=== PATIENT | male | born 1965 | race Caucasian/White ===

== ENCOUNTER → 2017-06-08 | Outpatient (REF) | payer MEDICARE ==
[2017-06-08 17:57] LABS: ALBUMIN 3.8 GM/DL (3.2-5.2); ALBUMIN/GLOBULIN RATIO 1.36 (1.00-1.93); ALKALINE PHOSPHATASE 79 U/L (45-117); ALT/SGPT 32 U/L (12-78); ANION GAP 10 MEQ/L (8-16); AST/SGOT 18 U/L (15-37); BILIRUBIN,TOTAL 0.3 MG/DL (0.2-1.0); BLOOD UREA NITROGEN 13 MG/DL (7-18); CALCIUM LEVEL 8.6 MG/DL (8.5-10.1); CARBON DIOXIDE LEVEL 24 MEQ/L (21-32); CHLORIDE LEVEL 104 MEQ/L (98-107); CREATININE FOR GFR 0.69 MG/DL (0.70-1.30); GLOMERULAR FILTRATION RATE > 60.0 (>56); GLUCOSE, FASTING 127 MG/DL (70-105); POTASSIUM SERUM 3.9 MEQ/L (3.5-5.1); SODIUM LEVEL 138 MEQ/L (136-145); TOTAL PROTEIN 6.6 GM/DL (6.4-8.2)
== END ==
LOC: M SFHCPLAZ 16:08
PROVIDERS: ATTEND Physician Assistant
DX: G10 Huntington's disease (principal); N40.0 Benign prostatic hyperplasia without lower urinary tract symptoms; F41.9 Anxiety disorder, unspecified; K21.9 Gastro-esophageal reflux disease without esophagitis
CPT/HCPCS: 36415; 80053; G0103; G0463

== ENCOUNTER → 2018-09-20 | Outpatient (REF) | payer MEDICARE ==
[2018-09-20 19:27] LABS: HEMATOCRIT 45.2 % (42.0-52.0); HEMOGLOBIN 15.6 g/dl (13.5-17.5); MEAN CORPUSCULAR HEMOGLOBIN 31.5 pg (27.0-33.0); MEAN CORPUSCULAR HGB CONC 34.5 g/dl (32.0-36.5); MEAN CORPUSCULAR VOLUME 91.3 fl (80.0-96.0); PLATELET COUNT, AUTOMATED 336 10^3/uL (150-450); RED BLOOD COUNT 4.95 10^6/uL (4.30-6.10); RED CELL DISTRIBUTION WIDTH 13.1 % (11.5-14.5); WHITE BLOOD COUNT 11.8 10^3/uL (4.0-10.0)
[2018-09-20 20:01] LABS: ALBUMIN 4.2 GM/DL (3.2-5.2); ALBUMIN/GLOBULIN RATIO 1.27 (1.00-1.93); ALKALINE PHOSPHATASE 102 U/L (45-117); ALT/SGPT 27 U/L (12-78); ANION GAP 7 MEQ/L (8-16); AST/SGOT 16 U/L (7-37); BILIRUBIN,TOTAL 0.3 MG/DL (0.2-1.0); BLOOD UREA NITROGEN 21 MG/DL (7-18); CALCIUM LEVEL 8.8 MG/DL (8.5-10.1); CARBON DIOXIDE LEVEL 28 MEQ/L (21-32); CHLORIDE LEVEL 104 MEQ/L (98-107); CHOLESTEROL LEVEL 226 MG/DL (<200); FREE T4 1.06 NG/DL (0.76-1.46); GLOMERULAR FILTRATION RATE > 60.0 (>56); GLUCOSE, FASTING 79 MG/DL (70-100); HDL CHOLESTEROL 42 MG/DL (>40); LDL CHOLESTEROL 157 MG/DL (<100); NON-HDL-C 184 MG/DL; POTASSIUM SERUM 3.9 MEQ/L (3.5-5.1); PSA SCREENING 1.2 NG/ML (< 4.0); SODIUM LEVEL 139 MEQ/L (136-145); TOTAL PROTEIN 7.5 GM/DL (6.4-8.2); TRIGLYCERIDES LEVEL 137 MG/DL (<150)
== END ==
LOC: M SFHCADAM 15:31
DX: G47.9 Sleep disorder, unspecified (principal); F41.9 Anxiety disorder, unspecified; E78.5 Hyperlipidemia, unspecified; K21.9 Gastro-esophageal reflux disease without esophagitis; Z12.5 Encounter for screening for malignant neoplasm of prostate
CPT/HCPCS: 84443

== ENCOUNTER 2019-05-14 05:01 | Inpatient (IN) | payer MEDICARE ==
[~2019-05-14] VITALS: Ht 175.3 cm; Wt 71.5 kg
[2019-05-14 05:33] LABS: BASO % 0.2 % (0.0-1.0); EOS # 0.1 10^3/uL (0.0-0.50); HEMATOCRIT 37.2 % (42.0-52.0); HEMOGLOBIN 13.1 g/dl (13.5-17.5); LYMPH % 16.2 % (24.0-44.0); MEAN CORPUSCULAR HEMOGLOBIN 32.2 pg (27.0-33.0); MEAN CORPUSCULAR HGB CONC 35.2 g/dl (32.0-36.5); MEAN CORPUSCULAR VOLUME 91.4 fl (80.0-96.0); MONO % 8.1 % (0.0-5.0); NEUTROPHILS # 9.2 10^3/uL (1.8-7.7); PLATELET COUNT, AUTOMATED 278 10^3/uL (150-450); RED BLOOD COUNT 4.07 10^6/uL (4.30-6.10); WHITE BLOOD COUNT 12.5 10^3/uL (4.0-10.0)
[2019-05-14] MEDS ORDERED: LORazepam 2 MG/ML VIAL (J2060) IV STA (05:35)
[2019-05-14] MEDS ORDERED: IPRATROPIUM 0.5MG/ALBUTEROL 2.5MG INH SOL UD 3ML (DUONEB)(J7620) NEB ONE (05:45)
[2019-05-14 05:56] LABS: BLOOD UREA NITROGEN 13 MG/DL (7-18); CALCIUM LEVEL 8.4 MG/DL (8.5-10.1); CARBON DIOXIDE LEVEL 20 MEQ/L (21-32); CHLORIDE LEVEL 113 MEQ/L (98-107); CK-MB VALUE MASS 1.9 NG/ML (<3.6); CPK CREATINE PHOSPHOKINASE 208 U/L (39-308); GLOMERULAR FILTRATION RATE > 60.0 (>56); GLUCOSE, FASTING 131 MG/DL (70-100); MB/CK RELATIVE INDEX 0.91 (< OR =4); POTASSIUM SERUM 3.4 MEQ/L (3.5-5.1); SODIUM LEVEL 143 MEQ/L (136-145); TROPONIN I 0.02 NG/ML (< 0.10)
[2019-05-14 07:03] LABS: NT-PRO BNP 2818 PG/ML (<125)
[2019-05-14] MEDS ORDERED: FUROSEMIDE 40 MG/4 ML VIAL (J1940) IV ONE (07:30)
--- NOTE | 2019-05-14 07:48 | REP ---
Clinical: Cough and shortness of breath. Comparison: 03/10/2015 Findings: Cardiomegaly is appreciated along with increased interstitial markings and prominent pulmonary vasculature with cephalization. Findings suggest pulmonary vascular congestion although correlation is required to exclude the possibility of multifocal pneumonia. No obvious effusion. No pneumothorax. Skeletal structures intact. Impression: Cardiomegaly. Differential diagnosis includes CHF/pulmonary vascular congestion versus multifocal pneumonia. Electronically Signed by Joaquín Willard MD 05/14/2019 07:39 A
[2019-05-14] MEDS ORDERED: ACETAMINOPHEN TAB 650MG DOSE (2X325MG) PO PRN (08:30)
[2019-05-14] MEDS ORDERED: MIRT1TAB16 PO (08:32)
[2019-05-14] MEDS ORDERED: OMEP-218 PO (08:32)
[2019-05-14] MEDS ORDERED: FLOM0.4C39 PO (08:32)
[2019-05-14] MEDS ORDERED: OLAN2.5T25 PO (08:32)
[2019-05-14] MEDS ORDERED: SERT-138 PO (08:32)
[2019-05-14] MEDS ORDERED: CETI10CH PO (08:35)
[2019-05-14] MEDS ORDERED: ALL10TAB28 PO (08:36)
[2019-05-14] MEDS ORDERED: IPRATROPIUM 0.5MG/ALBUTEROL 2.5MG INH SOL UD 3ML (DUONEB)(J7620) NEB PRN (08:45)
--- NOTE | 2019-05-14 08:47 | HPEPDOC ---
[facility] Medical History & Physical Date of Admission May 14, 2019 Date of Service: May 14, 2019 History and Physical CHIEF COMPLAINT: SOB HISTORY OF PRESENT ILLNESS: Patient's a 54-year-old male with past medical history of hunting's disease and COPD presents to ER for complaints of shortness of breath. Patient has reported ly has the same complaints for several weeks with noted anxiety but has worsened for the past several days. He states that his anxiety has been getting worse and was recently started on sertraline with his PMD to help with anxiety but not has significant relief from that. Also noted to have increasing thirst and has been drinking excessively since starting the sertraline. Also reports increasing c ough, especially when he smokes but otherwise denies any fever, chills, chest pain or any other complaints. In ER, patient was found to have elevated BNP 2,800, tachycardic 130-140s HR and reportedly hypoxic requiring oxygen support. PAST MEDICAL HISTORY: Refer to [facility] PAST SURGICAL HISTORY: None SOCIAL HISTORY: Smokes 8 cigs/day.Denies alcohol or illicit drug use. FAMILY HISTORY: Mother- Brantley's disease Father- Emphysema and Lung cancer ALLERGIES: Please see below. REVIEW OF SYSTEMS: 10 point review of system negative except as stated in HPI HOME MEDICATIONS: Please see below. PHYSICAL EXAMINATION: General: No acute distress, Alert. Constant chorea. Eyes: Normal sclera, EOMI, LEMUEL HENT: Atraumatic, neck supple, moist mucous membranes Cardiovascular: Tachycardic, normal rhythm. No murmurs appreciated. Pulmonary: Clear to auscultation b/l, no wheezing GI: Soft, nontender, nondistended Skin: Warm and dry Neuro: CN grossly intact. No focal deficits. Strengths equal b/l. Psych: oriented x 3 LABORATORY DATA: See below. IMAGING: CXR- Impression: Cardiomegaly. Differential diagnosis includes CHF/pulmonary vascular congestion versus multifocal pneumonia. MICROBIOLOGY: Please see below. ASSESSMENT AND PLAN: 1. SOB - COPD vs. undiagnosed CHF - BNP 2,800, hypoxic in ER. However, no significant wheezing nor evidence of fluid overload on physical exam, apart from CXR findings. - c/w o2 support. - c/w IV lasix, I/O monitoring. - c/w nebs treatment and IV steroids at this time. 2. 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 - c/w current home meds, holding Sertraline. DVT ppx: Lovenox and SCD Code status: DNR Vital Signs Vital Signs Date Time Temp Pulse Resp B/P (MAP) Pulse Ox O2 Delivery O2 Flow Rate FiO2 05/14/19 08:01 103 94 Nasal Cannula 2.0 05/14/19 08:00 109/69 (82) 05/14/19 07:00 20 05/14/19 05:19 98.2 Laboratory Data Labs 24H Laboratory Tests 2 05/14/19 05:24: Immature Granulocyte % (Auto) 0.5, White Blood Count 12.5H, Red Blood Count 4.07L, Hemoglobin 13.1L, Hematocrit 37.2L, Mean Corpuscular Volume 91.4, Mean Corpuscular Hemoglobin 32.2, Mean Corpuscular Hemoglobin Concent 35.2, Red Cell Distribution Width 14.3, Platelet Count 278, Neutrophils (%) (Auto) 74.0H, Lymphocytes (%) (Auto) 16.2L, Monocytes (%) (Auto) 8.1H, Eosinophils (%) (Auto) 1.0, Basophils (%) (Auto) 0.2, Neutrophils # (Auto) 9.2H, Lymphocytes # (Auto) 2.0, Monocytes # (Auto) 1.0H, Eosinophils # (Auto) 0.1, Basophils # (Auto) 0.0, Nucleated Red Blood Cells % (auto) 0.0, Anion Gap 10, Glomerular Filtration Rate > 60.0, Blood Urea Nitrogen 13, Creatinine 0.90, Sodium Level 143, Potassium Level 3.4L, Chloride Level 113H, Carbon Dioxide Level 20L, Calcium Level 8.4L, Total Creatine Kinase 208, Creatine Kinase MB 1.9, Creatine Kinase MB Relative Index 0.91, Troponin I 0.02, HU-Nsv-R-Type Natriuretic Peptide 2818H CBC/BMP Laboratory Tests 05/14/19 05:24 Red Blood Count 4.07 L, Mean Corpuscular Volume 91.4, Mean Corpuscular Hemoglobin 32.2, Mean Corpuscular Hemoglobin Concent 35.2, Red Cell Distribution Width 14.3, Neutrophils (%) (Auto) 74.0 H, Lymphocytes (%) (Auto) 16.2 L, Monocy dylan (%) (Auto) 8.1 H, Eosinophils (%) (Auto) 1.0, Basophils (%) (Auto) 0.2, Neutrophils # (Auto) 9.2 H, Lymphocytes # (Auto) 2.0, Monocytes # (Auto) 1.0 H, Eosinophils # (Auto) 0.1, Basophils # (Auto) 0.0, Calcium Level 8.4 L, Total Creatine Kinase 208 Home Medications Scheduled Cetirizine HCl (Cetirizine HCl) 10 Mg Tab.chew, 10 MG PO DAILY takes at noon Mirtazapine (Mirtazapine) 30 Mg Tab.rapdis, 30 MG PO QHS Olanzapine (Olanzapine) 2.5 Mg Tablet, 2.5 MG PO BID Omeprazole (Omeprazole) 20 Mg Capsule.dr, 20 MG PO DAILY Sertraline HCl (Sertraline HCl) 100 Mg Tablet, 100 MG PO DAILY Tamsulosin HCl (Flomax) 0.4 Mg Capsule, 0.4 CAP PO ACB once daily 1/2 hour following breakfast Allergies Coded Allergies: No Known Drug Allergies (Verified Allergy, Unknown, 05/14/19) A-FIB/CHADSVASC A-FIB History Current/History of A-Fib/PAF?: No FRANCHESKA CHEW MD May 14, 2019 08:47
[2019-05-14] MEDS: CETIRIZINE (ZyrTEC) 10 MG TAB PO SCH (11:16)
[2019-05-14] MEDS: methylPREDNISolone INJ 40 MG/1 ML VIAL (J2920) IV SCH ×2 (11:16→23:09)
[2019-05-14] MEDS: ENOXAPARIN 40 MG/0.4 ML SYRINGE (J1650) SC SCH (11:17)
[2019-05-14 13:37] VITALS: BP 130/89
[2019-05-14] MEDS: IPRATROPIUM 0.5MG/ALBUTEROL 2.5MG INH SOL UD 3ML (DUONEB)(J7620) NEB SCH ×2 (14:00→19:29)
[2019-05-14] MEDS: FUROSEMIDE 40 MG/4 ML VIAL (J1940) IV SCH (16:49)
[2019-05-14 18:00] VITALS: BP 113/55
[2019-05-14] MEDS ORDERED: METOPROLOL TART 12.5 MG PER 1/2 TAB PO ONE (21:45)
[2019-05-14 22:00] VITALS: BP 107/60
--- NOTE | 2019-05-14 22:13 | ECGEPIP ---
[facility] - ED Test Date: 2019-05-14 Pat Name: CASSANDRA EDMONDS Department: Room: [place] [address] Gender: Male [employer] Lieutenant: ALEXUS : [id number] Requested By: CARO Cabrales Order Number: [id number] Reading MD: Tra Hughes Measurements Intervals [place] Rate: 119 P: CO: 100 QRS: QRSD: 114 T: 119 QT: 332 QTc: 467 Interpretive Statements SINUS TACHYCARDIA WITH SHORT CO INTERVAL MODERATE INTRAVENTRICULAR CONDUCTION DELAY Prolonged QT interval Delayed anterior R wave progression Nonspecific T wave abnormality Wavy baseline/artifact Comparison tracing not on file Electronically Signed on 05-14-2019 22:13:20 EDT by Tra Hughes
[2019-05-14 22:15] LABS: MAGNESIUM LEVEL 1.9 MG/DL (1.8-2.4)
[2019-05-14 22:57] LABS: ALBUMIN 3.6 GM/DL (3.2-5.2); BLOOD UREA NITROGEN 18 MG/DL (7-18); CALCIUM LEVEL 8.7 MG/DL (8.5-10.1); CARBON DIOXIDE LEVEL 22 MEQ/L (21-32); CHLORIDE LEVEL 109 MEQ/L (98-107); CREATININE FOR GFR 1.01 MG/DL (0.70-1.30); GLOMERULAR FILTRATION RATE > 60.0 (>56); GLUCOSE, FASTING 120 MG/DL (70-100); PHOSPHORUS LEVEL 3.9 MG/DL (2.5-4.9); POTASSIUM SERUM 3.5 MEQ/L (3.5-5.1); SODIUM LEVEL 141 MEQ/L (136-145); TROPONIN I < 0.02 NG/ML (< 0.10)
[2019-05-14] MEDS: MIRTAZAPINE 15 MG TAB PO SCH (23:09)
[2019-05-14] MEDS: OLANZapine 2.5MG TABLET PO SCH (23:09)
[2019-05-15] MEDS: IPRATROPIUM 0.5MG/ALBUTEROL 2.5MG INH SOL UD 3ML (DUONEB)(J7620) NEB SCH ×4 (01:23→19:40)
[2019-05-15 02:00] VITALS: BP 106/63
[2019-05-15 06:00] VITALS: BP 115/66
[2019-05-15 06:03] LABS: HEMATOCRIT 37.5 % (42.0-52.0); HEMOGLOBIN 13.3 g/dl (13.5-17.5); MEAN CORPUSCULAR HEMOGLOBIN 32.5 pg (27.0-33.0); MEAN CORPUSCULAR HGB CONC 35.5 g/dl (32.0-36.5); MEAN CORPUSCULAR VOLUME 91.7 fl (80.0-96.0); PLATELET COUNT, AUTOMATED 294 10^3/uL (150-450); RED BLOOD COUNT 4.09 10^6/uL (4.30-6.10); WHITE BLOOD COUNT 15.2 10^3/uL (4.0-10.0)
[2019-05-15 06:24] LABS: BLOOD UREA NITROGEN 20 MG/DL (7-18); CALCIUM LEVEL 8.1 MG/DL (8.5-10.1); CARBON DIOXIDE LEVEL 24 MEQ/L (21-32); CHLORIDE LEVEL 108 MEQ/L (98-107); GLOMERULAR FILTRATION RATE > 60.0 (>56); GLUCOSE, FASTING 153 MG/DL (70-100); POTASSIUM SERUM 3.6 MEQ/L (3.5-5.1); SODIUM LEVEL 141 MEQ/L (136-145)
[2019-05-15] MEDS: FUROSEMIDE 40 MG/4 ML VIAL (J1940) IV SCH ×2 (09:58→17:16)
[2019-05-15] MEDS: methylPREDNISolone INJ 40 MG/1 ML VIAL (J2920) IV SCH ×2 (09:58→21:59)
[2019-05-15] MEDS: CETIRIZINE (ZyrTEC) 10 MG TAB PO SCH (09:59)
[2019-05-15] MEDS: ENOXAPARIN 40 MG/0.4 ML SYRINGE (J1650) SC SCH (09:59)
[2019-05-15] MEDS: OMEPRAZOLE 20 MG CAP PO SCH (09:59)
[2019-05-15] MEDS: TAMSULOSIN 0.4 MG CAP PO SCH (09:59)
[2019-05-15] MEDS: OLANZapine 2.5MG TABLET PO SCH ×2 (09:59→21:59)
[2019-05-15] MEDS: METOPROLOL TART 12.5 MG PER 1/2 TAB PO SCH ×2 (09:59→21:59)
[2019-05-15 10:00] VITALS: BP 129/83
--- NOTE | 2019-05-15 11:17 | IPNPDOC ---
Subjective Date Seen The patient was seen on 05/15/19. Subjective Chief Complaint/HPI Patient sitting at bedside as I entered the room. He reports to be feeling better. He states he came to ER d/t anxiety. The family member at bedside reports concerns over patient's difficulty with swallowing fluids. She states at home he uses a water bottle and has been choking when drinking Constitutional: Denies: Chills, Fever Pulmonary: Reports: Cough; Denies: Dyspnea, Pleuritic Chest Pain Cardiovascular: Denies: Chest Pain, Palpitations, Orthopnea, Edema Gastrointestinal: Denies: Nausea, Vomiting, Abdominal Pain Neurological: Reports: Other Symptoms (spastic movement ) Psych: Reports: Mood Normal Objective Physical Examination General Exam: Positive: Alert, Cooperative, No Acute Distress Eye Exam: Negative: Sclera icteric Neck Exam: Positive: Supple; Negative: JVD Chest Exam: Positive: Clear to auscultation, Normal air movement; Negative: Rales, Rhonchi, Wheezing Heart Exam: Positive: Tachycardic, Regular Rhythm Abdomen Exam: Positive: Normal bowel sounds, Soft; Negative: Tenderness, Hepatospenomegaly Extremity Exam: Negative: Cyanosis, Edema Skin Exam: Positive: Nl turgor and temperature Neuro Exam: Positive: Other (spastic movements ) Psych Exam: Positive: Mental status NL Assessment /Plan Assessment Patient seen, significant chorea but appears fairly comfortable from a respiratory standpoint. States improvement in dyspnea and anxiety. -- CDT Problems (1) Shortness of breath Status: Acute Response to Treatment: Stable Problem Text: 05/15/19: Symptoms seem to be improving. ? CHF vs COPD, ECHO pend ing. He was started on Lasix 40 mg IV BID and solumedrol. He is afebrile. No signs of congestion. Clinical exam unremarkable. Chest X-ray: Impression: Cardiomegaly. Differential diagnosis includes CHF/pulmonary vascular congestion versus multifocal pneumonia (2) Anxiety Status: Chronic Response to Treatment: Stable Problem Text: 05/15/19: Patient was on Sertaline 100mg po q day which was placed on hold. We should consider restarting this medication (3) Difficulty swallowing liquids Status: Acute Problem Text: 05/15/19: Swallow eval (4) Tachycardia Status: Chronic Response to Treatment: Stable Problem Text: 05/15/19: Patient's HR ranging 110-138. His baseline HR is 125 upon review of outpatient records. He was started on Metoprolol 12.5 mg po bid. We will continue to monitor. He remains on tele. EKG ordered. ECHO pending (5) [place]'s disease Status: Chronic Response to Treatment: Stable Plan/VTE VTE Prophylaxis Ordered?: Yes (Lovenox) VS, I&O, 24H, Fishbone Vital Signs/I&O Vital Signs Date Time Temp Pulse Resp B/P (MAP) Pulse Ox O2 Delivery O2 Flow Rate FiO2 05/15/19 10:00 97.7 127 22 129/83 (98) 95 2.0 05/14/19 13:01 Nasal Cannula I&O- Last 24 Hours up to 6 AM 05/15/19 06:00 Intake Total 1800 ml Output Total 2300 ml Balance -500 ml Laboratory Data 24H LABS Laboratory Tests 2 05/14/19 21:36: Blood Urea Nitrogen 18, Creatinine 1.01, Sodium Level 141, Potassium Level 3.5, Chloride Level 109H, Carbon Dioxide Level 22, Anion Gap 10, Glomerular Filtration Rate > 60.0, Calcium Level 8.7, Phosphorus Level 3.9, Magnesium Level 1.9, Troponin I < 0.02, Albumin 3.6, Thyroid Stimulating Hormone (TSH) 1.100 05/15/19 05:27: Blood Urea Nitrogen 20H, Creatinine 0.80, Sodium Level 141, Potassium Level 3.6, Chloride Level 108H, Carbon Dioxide Level 24, Anion Gap 9, Glomerular Filtration Rate > 60.0, Calcium Level 8.1L, Nucleated Red Blood Cells % (auto) 0.0 CBC/BMP Laboratory Tests 05/14/19 21:36 Anion Gap 10 05/15/19 05:27 Red Blood Count 4.09 L, Mean Corpuscular Volume 91.7, Mean Corpuscular H emoglobin 32.5, Mean Corpuscular Hemoglobin Concent 35.5, Red Cell Distribution Width 14.2, Calcium Level 8.1 L ALLAN PETER May 15, 2019 11:17 ROLF GAN DO May 16, 2019 00:21
[2019-05-15] MEDS: SERTRALINE 100 MG TAB PO SCH (12:40)
[2019-05-15 14:00] VITALS: BP 112/72
--- NOTE | 2019-05-15 14:27 | NUR ---
Recommend level 2 mechanically altered (NDD) solids, thin liquids w/ extreme cold, small straw sips, & chin tuck strategy. Upright & OOB for intake. Oral care 3x/day. Dysphagia tx compensatory strategy training & laryngeal strengthening exercises. Addendum: 05/15/[address] SP Amended: Links added.
[2019-05-15 18:00] VITALS: BP 103/69
--- NOTE | 2019-05-15 18:45 | ECHO ---
DATE OF PROCEDURE: 05/15/2019 AGE: 54 GENDER: Male HEIGHT: 69 inches WEIGHT: 158 pounds BODY SURFACE AREA: 1.87 m2 PATIENT LOCATION: Inpatient, [address] [place] [address], room 4202 REFERRING PHYSICIAN: Johann Peralta MD INDICATION: Edema. 2-D MEASUREMENTS: RV: 3.8 cm LV: 6.0 cm Septum: 1.0 cm Posterior wall: 1.0 cm Aortic root: 3.2 cm LA: 4.2 cm LVEF: 30% DOPPLER MEASUREMENTS: AV: 1.1 m/s LVOT: 0.57 m/s LVOT diameter: 2.5 cm MV: Superimposed early and late diastolic filling patterns PV: 0.6 m/s Pulmonary artery acceleration time: 100 ms RVSP: 56 mmHg IVC: 2.2 cm COMMENTS Sinus tachycardia with incomplete left bundle branch block. Technically, challenging study in light of the patient's body habitus but diagnostically useful information was still obtained. M-mode and two-dimensional echocardiography was performed with pulsed, continuous wave, color flow and tissue Doppler studies. Moderately dilated left ventricle with normal wall thickness and moderately severe global hypokinesis resulting in moderately severe impairment of global resting systolic function. Mildly dilated left atrium. Unable to assess diastolic function in light of the persons weight and superimposition of early and late diastolic filling patterns. Right heart chambers upper limits of normal in size with marked hypokinesis of right ventricular free wall and Doppler evidence of at least moderate pulmonary hypertension. IVC size upper limits of normal with reduced respiratory collapse in keeping with elevated central venous pressure - right heart failure. Normal-appearing aortic valve with adequate cusp separation but premature cusp closure in keeping with reduced forward stroke volume. Normal-appearing mitral valvular apparatus with reduced leaflet excursion again in keeping with reduced flow. No posterior systolic buckling or prolapse but moderate eccentrically directed mitral insufficiency. Normal appearing tricuspid valve with at least mild - moderate insufficiency. No apparent intracardiac mass or pericardial effusion. The above test findings are consistent with a dilated cardiomyopathy.
[2019-05-15] MEDS: MIRTAZAPINE 15 MG TAB PO SCH (21:59)
[2019-05-15 22:00] VITALS: BP 108/69
[2019-05-16] MEDS: IPRATROPIUM 0.5MG/ALBUTEROL 2.5MG INH SOL UD 3ML (DUONEB)(J7620) NEB SCH ×4 (01:31→20:08)
[2019-05-16 02:00] VITALS: BP 103/57
[2019-05-16 06:00] VITALS: BP 100/67
[2019-05-16 06:30] LABS: BASO % 0.1 % (0.0-1.0); HEMATOCRIT 39.5 % (42.0-52.0); HEMOGLOBIN 13.7 g/dl (13.5-17.5); LYMPH # 1.3 10^3/uL (1.5-4.5); LYMPH % 7.7 % (24.0-44.0); MEAN CORPUSCULAR HEMOGLOBIN 32.3 pg (27.0-33.0); MEAN CORPUSCULAR HGB CONC 34.7 g/dl (32.0-36.5); MEAN CORPUSCULAR VOLUME 93.2 fl (80.0-96.0); MONO # 0.8 10^3/uL (0.0-0.8); NEUTROPHILS # 14.5 10^3/uL (1.8-7.7); NEUTROPHILS % 86.7 % (36.0-66.0); PLATELET COUNT, AUTOMATED 328 10^3/uL (150-450); RED BLOOD COUNT 4.24 10^6/uL (4.30-6.10); WHITE BLOOD COUNT 16.8 10^3/uL (4.0-10.0)
[2019-05-16 06:49] LABS: BLOOD UREA NITROGEN 23 MG/DL (7-18); CALCIUM LEVEL 8.6 MG/DL (8.5-10.1); CARBON DIOXIDE LEVEL 26 MEQ/L (21-32); CHLORIDE LEVEL 107 MEQ/L (98-107); CREATININE FOR GFR 0.99 MG/DL (0.70-1.30); GLOMERULAR FILTRATION RATE > 60.0 (>56); GLUCOSE, FASTING 145 MG/DL (70-100); POTASSIUM SERUM 3.5 MEQ/L (3.5-5.1); SODIUM LEVEL 141 MEQ/L (136-145)
[2019-05-16] MEDS ORDERED: POTASSIUM CHLORIDE 10 MEQ SR TABLET PO ONE ×2 (09:15→10:00)
[2019-05-16] MEDS: TAMSULOSIN 0.4 MG CAP PO SCH (09:33)
[2019-05-16] MEDS: methylPREDNISolone INJ 40 MG/1 ML VIAL (J2920) IV SCH ×2 (09:33→22:06)
[2019-05-16] MEDS: ENOXAPARIN 40 MG/0.4 ML SYRINGE (J1650) SC SCH (09:33)
[2019-05-16] MEDS: OLANZapine 2.5MG TABLET PO SCH ×2 (09:33→22:06)
[2019-05-16] MEDS: OMEPRAZOLE 20 MG CAP PO SCH (09:33)
[2019-05-16] MEDS: CETIRIZINE (ZyrTEC) 10 MG TAB PO SCH (09:33)
[2019-05-16] MEDS: SERTRALINE 100 MG TAB PO SCH (09:33)
[2019-05-16] MEDS: METOPROLOL TART 12.5 MG PER 1/2 TAB PO SCH ×2 (09:34→22:05)
[2019-05-16 09:53] LABS: MAGNESIUM LEVEL 2.1 MG/DL (1.8-2.4)
[2019-05-16 10:00] VITALS: BP 100/66
--- NOTE | 2019-05-16 11:44 | IPNPDOC ---
Subjective Date Seen The patient was seen on 05/16/19. Subjective Chief Complaint/HPI Pt this morning without new concerns. Nursing reports VT overnight. General: Denies: Fatigue Constitutional: Denies: Fever ENT: Denies: Head Aches Pulmonary: Reports: Dyspnea (improved); Denies: Cough Cardiovascular: Denies: Chest Pain, Palpitations Gastrointestinal: Denies: Nausea, Vomiting, Diarrhea Neurological: Denies: Weakness Psych: Reports: Mood Normal Objective Physical Examination General Exam: Positive: Alert, Cooperative, No Acute Distress Neck Exam: Positive: Supple; Negative: JVD Chest Exam: Positive: Clear to auscultation, Normal air movement; Negative: Rales, Rhonchi, Wheezing Heart Exam: Positive: Tachycardic, Regular Rhythm Abdomen Exam: Positive: Normal bowel sounds, Soft; Negative: Tenderness, Hepatospenomegaly Extremity Exam: Negative: Cyanosis, Edema Skin Exam: Positive: Nl turgor and temperature Neuro Exam: Positive: Other (spastic movements ) Psych Exam: Positive: Mental status NL Assessment /Plan Problems (1) Cardiomyopathy Status: Chronic Discussed With: Patient, Family with Pt Consent Problem Specific Plan: Monitor Clinically Problem Text: possibly HD-associated CMP; but also CAD RF (yash use, hyperlipidemia 2A-last LDL 157) no recent URI/no EthOH use 05/15/19 TTE: Moderately dilated left ventricle with normal wall thickness and moderately severe global hypokinesis resulting in moderately severe impairment of global resting systolic function. Mildly dilated left atrium. Unable to assess diastolic function in light of the persons weight and superimposition of early and late diastolic filling patterns. Right heart chambers upper limits of normal in size with marked hypokinesis of right ventricular free wall and Doppler evidence of at least moderate pulmonary hypertension. IVC size upper limits of normal with reduced respiratory collapse in keeping with elevated central venous pressure - right heart failure. Normal-appearing aortic valve with adequate cusp separation but premature cusp closure in keeping with reduced forward stroke volume. Normal-appearing mitral valvular apparatus with reduced leaflet excursion again in keeping with reduced flow. No posterior systolic buckling or prolapse but moderate eccentrically directed mitral insufficiency. Normal appearing tricuspid valve with at least mild - moderate insufficiency. No apparent intracardiac mass or pericardial effusion. The above test findings are consistent with a dilated cardiomyopathy. DD: Selvin Tejada MD, [facility] 05/15/19 [id number] DT: [id number] [id number] DS: MARTY 05/15/192205 <Electronically signed by Selvin Tejada > 05/15/192205 DS2: [~ rep ct labl] (2) Recurrent ventricular tachycardia Status: Acute Problem Text: NS asx 05/16 K 3.5/Mg 2.1; therefore, + K 40 po; favor evaluation by Cardiology tc tx for LCH +/- AICD; possibly HD-associated CMP 05/14 TSH 1.1 05/14 T-I <0.03 (3) Systolic CHF Status: Chronic Problem Specific Plan: Monitor Clinically Problem Text: see above (4) Anxiety Status: Chronic Response to Treatment: Stable Problem Text: Stable on HD JASON regimen (5) Difficulty swallowing liquids Status: Acute Problem Text: 05/16 Soft, mech with thin liquids after ST eval, consistent with diet at home. 05/15/19: Swallow eval (6) [place]'s disease Status: Chronic Response to Treatment: Stable Plan/VTE VTE Prophylaxis Ordered?: Yes (Lovenox) VS, I&O, 24H, Fishbone Vital Signs/I&O Vital Signs Date Time Temp Pulse Resp B/P (MAP) Pulse Ox O2 Delivery O2 Flow Rate FiO2 05/16/19 10:00 97.0 117 19 100/66 (77) 100 05/15/19 14:00 05/14/19 13:01 Nasal Cannula l I&O- Last 24 Hours up to 6 AM 05/16/19 06:00 Intake Total 1050 ml Output Total 650 ml Balance 400 ml Laboratory Data 24H LABS Laboratory Tests 2 05/16/19 05:17: Immature Granulocyte % (Auto) 0.5, White Blood Count 16.8H, Red Blood Count 4.24L, Hemoglobin 13.7, Hematocrit 39.5L, Mean Corpuscular Volume 93.2, Mean Corpuscular Hemoglobin 32.3, Mean Corpuscular Hemoglobin Concent 34.7, Red Cell Distribution Width 14.7H, Platelet Count 328, Neutrophils (%) (Auto) 86.7H, Lymphocytes (%) (Auto) 7.7L, Monocytes (%) (Auto) 5.0, Eosinophils (%) (Auto) 0.0, Basophils (%) (Auto) 0.1, Neutrophils # (Auto) 14.5H, Lymphocytes # (Auto) 1.3L, Monocytes # (Auto) 0.8, Eosinophils # (Auto) 0.0, Basophils # (Auto) 0.0, Nucleated Red Blood Cells % (auto) 0.0, Anion Gap 8, Glomerular Filtration Rate > 60.0, Blood Urea Nitrogen 23H, Creatinine 0.99, Sodium Level 141, Potassium Level 3.5, Chloride Level 107, Carbon Dioxide Level 26, Calcium Level 8.6, Magnesium Level 2.1 CBC/BMP Laboratory Tests 05/16/19 05:17 Red Blood Count 4.24 L, Mean Corpuscular Volume 93.2, Mean Corpuscular Hemoglobin 32.3, Mean Corpuscular Hemoglobin Concent 34.7, Red Cell Distribution Width 14.7 H, Neutrophils (%) (Auto) 86.7 H, Lymphocytes (%) (Auto) 7.7 L, Monocytes (%) (Auto) 5.0, Eosinophils (%) (Auto) 0.0, Basophils (%) (Auto) 0.1, Neutrophils # (Auto) 14.5 H, Lymphocytes # (Auto) 1.3 L, Monocytes # (Auto) 0.8, Eosinophils # (Auto) 0.0, Basophils # (Auto) 0.0, Calcium Level 8.6 DEYVI MCNAMARA PA-C May 16, 2019 11:43 Vincenzo Muniz M.D. May 16, 2019 15:20
--- NOTE | 2019-05-16 13:24 | ECGEPIP ---
[facility] Test Date: 2019-05-15 Pat Name: CASSANDRA EDMONDS Department: Room: [place] [address] Gender: Male [employer] Fe[employer]: MARY : 1965 Requested By: ALLAN RENAE Order Number: [id number] Reading MD: Luke Spring Measurements Intervals [place] Rate: 111 P: 5 LA: 100 QRS: QRSD: 111 T: 179 QT: 362 QTc: 492 Interpretive Statements SINUS TACHYCARDIA WITH SHORT LA INTERVAL LEFT VENTRICULAR HYPERTROPHY AND ST-T CHANGE COMPARED TO 05/14/19 POOR R WAVE PROGRESSION IS NO LONGER PRESENT Electronically Signed on 05-16-2019 13:24:06 EDT by Luke Spring
[2019-05-16 14:00] VITALS: BP 112/76
[2019-05-16 16:07] LABS: CHOLESTEROL LEVEL 196 MG/DL (<200); CHOLESTEROL RISK RATIO 4.355 (<5); FREE T4 1.24 NG/DL (0.76-1.46); HDL CHOLESTEROL 45 MG/DL (>40); LDL CHOLESTEROL 136 MG/DL (<100); NON-HDL-C 151 MG/DL; TRIGLYCERIDES LEVEL 75 MG/DL (<150)
[2019-05-16 16:15] LABS: HEMOGLOBIN A1c 5.1 %
[2019-05-16 19:00] VITALS: BP 100/55
[2019-05-16 22:00] VITALS: BP 120/72
[2019-05-16] MEDS: MIRTAZAPINE 15 MG TAB PO SCH (22:06)
[2019-05-17 02:00] VITALS: BP 100/60
[2019-05-17] MEDS: IPRATROPIUM 0.5MG/ALBUTEROL 2.5MG INH SOL UD 3ML (DUONEB)(J7620) NEB SCH ×4 (02:22→19:21)
[2019-05-17 06:00] VITALS: BP 111/69
[2019-05-17 06:09] LABS: BASO % 0.1 % (0.0-1.0); HEMATOCRIT 40.1 % (42.0-52.0); LYMPH # 1.4 10^3/uL (1.5-4.5); LYMPH % 9.3 % (24.0-44.0); MEAN CORPUSCULAR HEMOGLOBIN 32.8 pg (27.0-33.0); MEAN CORPUSCULAR HGB CONC 34.9 g/dl (32.0-36.5); MEAN CORPUSCULAR VOLUME 93.9 fl (80.0-96.0); MONO # 0.9 10^3/uL (0.0-0.8); MONO % 6.1 % (0.0-5.0); NEUTROPHILS # 12.2 10^3/uL (1.8-7.7); NEUTROPHILS % 83.8 % (36.0-66.0); PLATELET COUNT, AUTOMATED 333 10^3/uL (150-450); RED BLOOD COUNT 4.27 10^6/uL (4.30-6.10); WHITE BLOOD COUNT 14.6 10^3/uL (4.0-10.0)
[2019-05-17 06:32] LABS: BLOOD UREA NITROGEN 21 MG/DL (7-18); CALCIUM LEVEL 8.8 MG/DL (8.5-10.1); CARBON DIOXIDE LEVEL 23 MEQ/L (21-32); CHLORIDE LEVEL 111 MEQ/L (98-107); CREATININE FOR GFR 0.85 MG/DL (0.70-1.30); GLOMERULAR FILTRATION RATE > 60.0 (>56); GLUCOSE, FASTING 129 MG/DL (70-100); MAGNESIUM LEVEL 2.1 MG/DL (1.8-2.4); POTASSIUM SERUM 4.8 MEQ/L (3.5-5.1); SODIUM LEVEL 142 MEQ/L (136-145); TROPONIN I 0.88 NG/ML (< 0.10)
[2019-05-17] MEDS: TAMSULOSIN 0.4 MG CAP PO SCH (09:43)
[2019-05-17] MEDS: SERTRALINE 100 MG TAB PO SCH (09:43)
[2019-05-17] MEDS: METOPROLOL TART 12.5 MG PER 1/2 TAB PO SCH (09:43)
[2019-05-17] MEDS: CETIRIZINE (ZyrTEC) 10 MG TAB PO SCH (09:43)
[2019-05-17] MEDS: OMEPRAZOLE 20 MG CAP PO SCH (09:43)
[2019-05-17] MEDS: methylPREDNISolone INJ 40 MG/1 ML VIAL (J2920) IV SCH ×2 (09:43→21:45)
[2019-05-17] MEDS: OLANZapine 2.5MG TABLET PO SCH ×2 (09:43→21:44)
[2019-05-17] MEDS: ENOXAPARIN 40 MG/0.4 ML SYRINGE (J1650) SC SCH (09:44)
[2019-05-17 10:00] VITALS: BP 117/80
[2019-05-17] MEDS: VALSARTAN 40MG TABLET (DIOVAN) PO SCH (12:04)
[2019-05-17] MEDS: FUROSEMIDE 20 MG TAB PO SCH ×2 (12:04→17:12)
--- NOTE | 2019-05-17 12:05 | IPNPDOC ---
Subjective Date Seen The patient was seen on 05/17/19. Subjective Chief Complaint/HPI Pt this morning without new concerns. He has met with Cardio this morning and has declined any interventional procedures, request only medical intervention Constitutional: Denies: Chills, Fever Pulmonary: Denies: Dyspnea, Cough Cardiovascular: Denies: Chest Pain, Palpitations Gastrointestinal: Denies: Nausea, Vomiting, Diarrhea Neurological: Reports: Weakness Psych: Reports: Mood Normal Objective Physical Examination General Exam: Positive: Alert, Cooperative, No Acute Distress Neck Exam: Positive: Supple; Negative: JVD Chest Exam: Positive: Clear to auscultation, Normal air movement; Negative: Rales, Rhonchi, Wheezing Heart Exam: Positive: Tachycardic, Regular Rhythm Abdomen Exam: Positive: Normal bowel sounds, Soft; Negative: Tenderness, Hepatospenomegaly Extremity Exam: Negative: Cyanosis, Edema Skin Exam: Positive: Nl turgor and temperature Neuro Exam: Positive: Other (spastic movements ) Psych Exam: Positive: Mental status NL Assessment /Plan Assessment Patient seen, agree with note below. Patient states more comfortable than upon admission, wishes to go home soon, wants only medical interventions, would not want an AICD or other. -- CDT Problems (1) Cardiomyopathy Status: Chronic Discussed With: Patient, Family with Pt Consent Problem Specific Plan: Monitor Clinically Problem Text: 05/17 Pt has met with Dr Spring, he has declined any interventional procedures. He understands the risks and feels as though this will not improve his quality of life given his HD. Saw has made adjustments to his regimen, rec monitoring overnight then d/c in AM. 05/16 possibly HD-associated CMP; but also CAD RF (yash use, hyperlipidemia 2A- last LDL 157) no recent URI/no EthOH use 05/15/19 TTE: Moderately dilated left ventricle with normal wall thickness and moderately severe global hypokinesis resulting in moderately severe impairment of global resting systolic function. Mildly dilated left atrium. Unable to assess diastolic function in light of the persons weight and superimposition of early and late diastolic filling patterns. Right heart chambers upper limits of normal in size with marked hypokinesis of right ventricular free wall and Doppler evidence of at least moderate pulmonary hypertension. IVC size upper limits of normal with reduced respiratory collapse in keeping with elevated central venous pressure - right heart failure. Normal-appearing aortic valve with adequate cusp separation but premature cusp closure in keeping with reduced forward stroke volume. Normal-appearing mitral valvular apparatus with reduced leaflet excursion again in keeping with reduced flow. No posterior systolic buckling or prolapse but moderate eccentrically directed mitral insufficiency. Normal appearing tricuspid valve with at least mild - moderate insufficiency. No apparent intracardiac mass or pericardial effusion. The above test findings are consistent with a dilated cardiomyopathy. DD: Selvin Tejada MD, [facility] 05/15/19 1731 DT: LUCIA 05/15/191836 DS: MARTY 05/15/192205 <Electronically signed by Selvin Tejada > 05/15/192205 DS2: [~ rep ct labl] (2) Recurrent ventricular tachycardia Status: Acute Problem Text: NS asx 05/16 K 3.5/Mg 2.1; therefore, + K 40 po; favor evaluation by Cardiology tc tx for LCH +/- AICD; possibly HD-associated CMP 05/14 TSH 1.1 05/14 T-I <0.03 (3) Systolic CHF Status: Chronic Problem Specific Plan: Monitor Clinically Problem Text: see above (4) Anxiety Status: Chronic Response to Treatment: Stable Problem Text: Stable on HD JASON regimen (5) Difficulty swallowing liquids Status: Acute Problem Text: 05/16 Soft, mech with thin liquids after ST eval, consistent with diet at home. 05/15/19: Swallow eval (6) [place]'s disease Status: Chronic Response to Treatment: Stable Plan/VTE VTE Prophylaxis Ordered?: Yes (Lovenox) VS, I&O, 24H, Fishbone Vital Signs/I&O Vital Signs Date Time Temp Pulse Resp B/P (MAP) Pulse Ox O2 Delivery O2 Flow Rate FiO2 05/17/19 10:00 97.3 124 18 117/80 (92) 97 05/15/19 14:00 05/14/19 13:01 Nasal Cannula I&O- Last 24 Hours up to 6 AM 05/17/19 06:00 Intake Total 1400 ml Output Total 0 ml Balance 1400 ml Laboratory Data 24H LABS Laboratory Tests 2 05/17/19 05:27: Immature Granulocyte % (Auto) 0.7, White Blood Count 14.6H, Red Blood Count 4.27L, Hemoglobin 14.0, Hematocrit 40.1L, Mean Corpuscular Volume 93.9, Mean Corpuscular Hemoglobin 32.8, Mean Corpuscular Hemoglobin Concent 34.9, Red Cell Distribution Width 14.8H, Platelet Count 333, Neutrophils (%) (Auto) 83.8H, Lymphocytes (%) (Auto) 9.3L, Monocytes (%) (Auto) 6.1H, Eosinophils (%) (Auto) 0.0, Basophils (%) (Auto) 0.1, Neutrophils # (Auto) 12.2H, Lymphocytes # (Auto) 1.4L, Monocytes # (Auto) 0.9H, Eosinophils # (Auto) 0.0, Basophils # (Auto) 0.0, Nucleated Red Blood Cells % (auto) 0.0, Anion Gap 8, Glomerular Filtration Rate > 60.0, Blood Urea Nitrogen 21H, Creatinine 0.85, Sodium Level 142, Potassium Level 4.8#, Chloride Level 111H, Carbon Dioxide Level 23, Calcium Level 8.8, Magnesium Level 2.1, Troponin I 0.88H CBC/BMP Laboratory Tests 05/17/19 05:27 Red Blood Count 4.27 L, Mean Corpuscular Volume 93.9, Mean Corpuscular Hemoglobin 32.8, Mean Corpuscular Hemoglobin Concent 34.9, Red Cell Distribution Width 14.8 H, Neutrophils (%) (Auto) 83.8 H, Lymphocytes (%) (Auto) 9.3 L, Monocytes (%) (Auto) 6.1 H, Eosinophils (%) (Auto) 0.0, Basophils (%) (Auto) 0.1, Neutrophils # (Auto) 12.2 H, Lymphocytes # (Auto) 1.4 L, Monocytes # (Auto) 0.9 H, Eosinophils # (Auto) 0.0, Basophils # (Auto) 0.0, Calcium Level 8.8 DEYVI MCNAMARA PA-C May 17, 2019 12:05 ROLF GAN DO May 18, 2019 00:23
[2019-05-17 14:00] VITALS: BP 120/70
--- NOTE | 2019-05-17 14:28 | CR ---
DATE OF CONSULTATION: 05/17/2019 I was asked by LISA Palacios to see Mr. Villalobos for runs of nonsustained ventricular tachycardia. HISTORY OF PRESENT ILLNESS: Mr. Villalobos is previously unknown to me. 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 He reports probably two or three week history of gradually increasing cough associated with shortness of breath. He felt that the episodes of shortness of breath were due to anxiety and actually was given anxiolytic medications, but eventually came to emergency room because they were worsening. On the evaluation in the ER he was found to be very tachycardic with heart rate in 130s and 140s and chest x-ray revealed cardiomegaly and pulmonary edema. His BNP also was very elevated. He received oxygen and a relatively modest dose of diuretics and his respiratory status improved but starting last night he developed multiple runs of nonsustained ventricular tachycardia and I was asked to see him. At bedside, patient appears comfortable. He has involuntary movements consistent with his diagnosis. He reports no shortness of breath, chest pain or sensation of palpitations, syncope or near syncope. He complains principally about cough and he would like to go home as soon as possible because he feels more comfortable there. PAST MEDICAL HISTORY: 1. Marga's chorea. 2. Longstanding history of smoking. PAST SURGICAL HISTORY: Negative. SOCIAL HISTORY: Patient is and his is at bedside. He is a smoker, 8 cigarettes a day. He tells me that he smokes to calm himself down. There is no history of alcohol use. He is on disability and has been since 2014. Apparently besides his who is oxygen dependent, he lives with his [id number] who is very helpful. FAMILY HISTORY: His mother from [place]'s chorea in her early 60s, father of emphysema and lung cancer. ALLERGIES: There are no allergies. OUTPATIENT MEDICATIONS: - Zyrtec 10 mg daily - mirtazapine 30 mg at night - olanzapine 2.5 mg twice a day - omeprazole 20 mg daily - sertraline 100 mg daily - Flomax 0.4 mg daily REVIEW OF SYSTEMS: He denies any recent fever, chills, nausea, vomiting or diarrhea. He does complain about mostly nonproductive cough. No chest pain, no palpitations, no syncope. No abdominal pain, no peripheral edema. PHYSICAL EXAMINATION: VITAL SIGNS: Blood pressure 118/70, heart rate from 90s to 120s, sinus rhythm, with very frequent runs of nonsustained ventricular tachycardia (VT). He is afebrile. Weight is documented as 72 kg which is essentially unchanged since admission. He is alert and oriented and appropriate. His jugular venous pressure is not high. LUNGS: Reasonably clear even though he does have occasional inspiratory crackle bilaterally. HEART: Reveals regular tachycardia. I do not appreciate murmur. No maci gallop even though the exam is challenging on account of his choreatic movement. ABDOMEN: Soft, nontender. There is no peripheral edema. Peripheral pulses are palpable. NEUROLOGICAL: The exam is consistent with his diagnosis but he freely moves all four extremities and his thought and speech are intact. LABS Basic metabolic panel: Sodium 142, potassium 4.8, BUN 21, creatinine 0.8, and glucose 119. Hemoglobin A1c 5.1, magnesium 2.1, troponin on admission was negative. Currently this morning was 0.88. Lipid panel reveals total cholesterol 196, LDL 136, triglycerides 75, and HDL 45. TSH is 1.1. CBC: WBC count 14.6, hemoglobin 14, hematocrit 40, platelet count 333,000. There are ECGs in chart that reveal sinus tachycardia, left ventricular hypertrophy with secondary repolarization abnormalities that certainly cannot be ruled out ischemic component. An echocardiogram was interpreted by Dr. Tejada and revealed dilated hypokinetic left ventricle with estimated ejection fraction (EF) around 30% with elevated central venous pressure (CVP) and at least moderate pulmonary hypertension. ASSESSMENT AND PLAN: Mr. Villalobos is a 54-year-old man who presents with most likely nonischemic cardiomyopathy even though ischemic etiology is certainly possible. He presented with respiratory failure, but now seems to be feeling better, but started having trouble with multiple runs of nonsustained ventricular tachycardia that is very fast at times. I had a long discussion with him and his at bedside regarding management, prognosis and further interventions. He firmly tells me that he is not feeling that an invasive measurements should be taken. He says that if he dies suddenly he would consider that a blessing as the life with his neurological condition has been very unpleasant. Nevertheless, he does not want to suffer and consequently agrees to have medical management for underlying cardiomyopathy in order to reduce sensation of dyspnea and cough. I will start him on loop diuretics initially in oral form because he is not grossly volume overloaded and I will change his metoprolol to long acting preparation and will give him angiotensin receptor blockers (ARBs). I am hoping that it will make him feel a little bit better, but again consistent with his wishes that have been quite unequivocal and also corroborated by his as something that has been the case for a long time, will not perform any evaluation for underlying coronary artery disease and he would not ever entertain any possibility of angiography, stenting, bypass surgery or a defibrillator. SIN
[2019-05-17 18:00] VITALS: BP 118/60
[2019-05-17] MEDS ORDERED: METOPROLOL SUCC *XL* 25MG TAB (TopROL *XL*) PO SCH (21:00)
[2019-05-17] MEDS: MIRTAZAPINE 15 MG TAB PO SCH (21:44)
[2019-05-17 22:00] VITALS: BP 111/61
[2019-05-18] MEDS: IPRATROPIUM 0.5MG/ALBUTEROL 2.5MG INH SOL UD 3ML (DUONEB)(J7620) NEB SCH ×3 (01:18→14:00)
[2019-05-18 02:00] VITALS: BP 94/64
[2019-05-18 06:00] VITALS: BP 97/65
[2019-05-18 06:34] LABS: BLOOD UREA NITROGEN 21 MG/DL (7-18); CALCIUM LEVEL 8.7 MG/DL (8.5-10.1); CARBON DIOXIDE LEVEL 26 MEQ/L (21-32); CHLORIDE LEVEL 109 MEQ/L (98-107); CREATININE FOR GFR 0.86 MG/DL (0.70-1.30); GLOMERULAR FILTRATION RATE > 60.0 (>56); GLUCOSE, FASTING 135 MG/DL (70-100); POTASSIUM SERUM 4.5 MEQ/L (3.5-5.1); SODIUM LEVEL 142 MEQ/L (136-145)
[2019-05-18 08:33] VITALS: BP 98/68
[2019-05-18] MEDS: VALSARTAN 40MG TABLET (DIOVAN) PO SCH (08:33)
[2019-05-18] MEDS: TAMSULOSIN 0.4 MG CAP PO SCH (08:34)
[2019-05-18] MEDS: SERTRALINE 100 MG TAB PO SCH (08:34)
[2019-05-18] MEDS: OMEPRAZOLE 20 MG CAP PO SCH (08:34)
[2019-05-18] MEDS: FUROSEMIDE 20 MG TAB PO SCH (08:34)
[2019-05-18] MEDS: ENOXAPARIN 40 MG/0.4 ML SYRINGE (J1650) SC SCH (08:35)
[2019-05-18] MEDS: methylPREDNISolone INJ 40 MG/1 ML VIAL (J2920) IV SCH (08:35)
[2019-05-18] MEDS: OLANZapine 2.5MG TABLET PO SCH (09:14)
[2019-05-18] MEDS: CETIRIZINE (ZyrTEC) 10 MG TAB PO SCH (09:14)
[2019-05-18 10:00] VITALS: BP 92/61
--- NOTE | 2019-05-18 12:16 | IPN ---
DATE: 05/18/2019 Mr. Villalobos is feeling much better. He did not have any of his "panic attacks". He also did not have any additional episodes of ventricular tachycardia since yesterday. He has no specific complaints today and again tells me that he would like to go home. Vital Signs: Blood pressure 92/61. Heart rate has been from 90s to 110s. He is afebrile. His weight is documented 71.5 kg. He is alert and oriented and appropriate. His jugular venous pulse (JVP) does not look high. Lungs are clear. Heart exam reveals irregular tachycardia. I do not appreciate gallop. Abdomen is soft. Extremities are free of edema. Neurologically he is intact other than the choreoathetotic movements due to his underlying neurologic condition. Laboratory-madrigal, basic metabolic panel is normal but for glucose of 135 and CBC reveals hemoglobin 14 and hematocrit 40. ASSESSMENT/PLAN: Mr. Villalobos is a 54-year-old man who has [place]'s chorea as his principal longstanding condition. He came to the hospital with weakness and what he called anxiety attacks which almost undoubtedly were due to congestive heart failure. He was found to have probably nonischemic cardiomyopathy with severely reduced left ventricular systolic function. He does not want to have any further evaluation in this regard, but would like to be comfortable in principal, so I started him on several new medications yesterday. Even though his blood pressure is rather soft, he is feeling overall better. I believe that he can be discharged home, I would likely leave him on the current medications. I do not plan to see him in followup on an outpatient basis, but please do not hesitate to contact me if further assistance is desired on both the patient's part and the attending physician's part. I spoke about this plan with Dr. Rebollar who is the covering physician for today.
[2019-05-18] MEDS ORDERED: PRED10TA2 PO (13:16)
[2019-05-18] MEDS ORDERED: DIOV40TA PO (13:16)
[2019-05-18] MEDS ORDERED: METO1TAB32 PO (13:16)
[2019-05-18] MEDS ORDERED: FURO20TA2 PO (13:16)
--- NOTE | 2019-05-18 23:02 | DS.PDOC ---
Discharge Summary General Date of Admission May 14, 2019 at 08:28 Date of Discharge May 18, 2019 Primary Care Physician: Faustino Pruett MD Attending Physician: ROLF GAN DO Specialist/Consultants Involve: Luke Spring MD Discharge Summary PROCEDURES PERFORMED DURING STAY: echocardiogram showing a dilated cardiomyopathy with moderately severe global hypokinesis ADMITTING DIAGNOSES: 1. shortness of breath DISCHARGE DIAGNOSES: 1. cardiomyopathy 2. recurrent ventricular tachycardia 3. systolic congestive heart failure 4. anxiety 5. [place]'s disease 6. dysphagia 7. emphysema COMPLICATIONS/CHIEF COMPLAINT: Acute Respiratory Failure With Hypoxia. HISTORY OF PRESENT ILLNESS: Patient's a 54-year-old male with past medical history of hunting's disease and COPD presents to ER for complaints of shortness of breath. Patient has reportedly has the same complaints for several weeks with noted anxiety but has worsened for the past several days. He states that his anxiety has been getting worse and was recently started on sertraline with his PMD to help with anxiety but not has significant relief from that. Also noted to have increasing thirst and has been drinking excessively since starting the sertraline. Also reports increasing cough, especially when he smokes but otherwise denies any fever, chills, chest pain or any other complaints. In ER, patient was found to have elevated BNP 2,800, tachycardic 130-140s HR and reportedly hypoxic requiring oxygen support. HOSPITAL COURSE: Patient was admitted to the hospital, and started on steroids. Echo showed dilated cardiomyopathy with EF of approximately 30%, and cardiology was consulted. Ultimately patient declined any interventions beyond medications. His medications were adjusted, to include diuretic, beta maci, and valsartan. Blood pressure in the morning of 05/18 was in the lower 90s systolic, but patient denied any dizziness or symptoms, and cardiology recommended continuing the valsartan. It should further be noted that the patient had several self-limited runs of V tach during his hospitalization, but was asymptomatic during these, and declined any intervention. DISCHARGE MEDICATIONS: Please see below. ALLERGIES: Please see below. PHYSICAL EXAMINATION ON DISCHARGE: VITAL SIGNS: Please see below. GENERAL: thin, chronically ill HEENT: mucous membranes moist NECK: supple CARDIOVASCULAR EXAMINATION: regular rate and rhythm RESPIRATORY EXAMINATION: clear to auscultation bilat ABDOMINAL EXAMINATION: soft, nontender, nondistended EXTREMITIES: no edema SKIN: clean, dry, intact NEUROLOGICAL EXAMINATION: constant choreiform movements PSYCHIATRIC EXAMINATION: appropriate mood and affect LABORATORY DATA: Please see below. IMAGING: Chest X ray upon admission shows Cardiomegaly. Differential diagnosis includes CHF/pulmonary vascular congestion versus multifocal pneumonia. PROGNOSIS: fair ACTIVITY: [As tolerated]. DIET: regular DISCHARGE PLAN: home DISPOSITION: 01 Home, Self-Care. DISCHARGE INSTRUCTIONS: Take all medications as prescribed. Contact the office with shortness of breath, or any problems, complaints or concerns. ITEMS TO FOLLOWUP ON ON OUTPATIENT: Call office for followup. DISCHARGE CONDITION: [Stable]. TIME SPENT ON DISCHARGE: Greater than 15 minutes. Vital Signs/I&Os Vital Signs Date Time Temp Pulse Resp B/P (MAP) Pulse Ox O2 Delivery O2 Flow Rate FiO2 05/18/19 10:00 96.9 93 18 92/61 (71) 95 05/15/19 14:00 05/14/19 13:01 Nasal Cannula I&O- Last 24 Hours up to 6 AM 05/18/19 06:00 Intake Total 760 ml Output Total 0 ml Balance 760 ml Laboratory Data Labs 24H Laboratory Tests 2 05/18/19 05:28: Anion Gap 7L, Glomerular Filtration Rate > 60.0, Blood Urea Nitrogen 21H, Creatinine 0.86, Sodium Level 142, Potassium Level 4.5, Chloride Level 109H, Carbon Dioxide Level 26, Calcium Level 8.7 CBC/BMP Laboratory Tests 05/18/19 05:28 Calcium Level 8.7 Discharge Medications Scheduled Cetirizine HCl (Cetirizine HCl) 10 Mg Tablet, 10 MG PO DAILY, (Reported) TAKES AT NOON Furosemide (Furosemide) 20 Mg Tablet, 20 MG PO BID@09,17 Metoprolol Succinate (Metoprolol Succinate) 25 Mg Tab.er.24h, 25 MG PO QHS Mirtazapine (Mirtazapine) 30 Mg Tab.rapdis, 30 MG PO QHS, (Reported) Olanzapine (Olanzapine) 2.5 Mg Tablet, 2.5 MG PO BID, (Reported) Omeprazole (Omeprazole) 20 Mg Capsule.dr, 20 MG PO DAILY, (Reported) Prednisone (Prednisone) 10 Mg Tablet, 1 TAB PO DAILY Take 4 tabs x 2 days, then 3 tabs x 2 days, then 2 tabs x 2 days, then 1 tab x 2 days Sertraline HCl (Sertraline HCl) 100 Mg Tablet, 100 MG PO DAILY, (Reported) Tamsulosin HCl (Flomax) 0.4 Mg Capsule, 0.4 CAP PO ACB, (Reported) once daily 1/2 hour following breakfast Valsartan (Diovan) 40 Mg Tablet, 40 MG PO DAILY Allergies Coded Allergies: No Known Drug Allergies (Verified Allergy, Unknown, 05/14/19) ROLF GAN DO May 18, 2019 23:02
[2019-05-20 14:10] LABS: ANTINUCLEAR ANTIBODIES DIRECT Negative (Negative); TSH RECEPTOR ASSAY <0.50 IU/L (0.00-1.75)
== END 2019-05-18 15:43 | disposition home or self-care (01) | DRG 315 ==
LOC: M ED 05:01 → M ED INP 08:28 → M MSPAV 13:36
PROVIDERS: ADMIT Student in an Organized Health Care Education/Training Program; ATTEND Family Medicine
DX: I42.9 Cardiomyopathy, unspecified (principal); G10 Huntington's disease; I50.22 Chronic systolic (congestive) heart failure; I47.2 Ventricular tachycardia; J43.9 Emphysema, unspecified; F17.210 Nicotine dependence, cigarettes, uncomplicated; R13.10 Dysphagia, unspecified; F41.9 Anxiety disorder, unspecified; Z66 Do not resuscitate; Z79.899 Other long term (current) drug therapy

== ENCOUNTER → 2019-06-05 | Outpatient (REF) | payer MEDICARE ==
[~2019-06-05] MED LIST: ALL10TAB28 PO; CETI10CH PO; DIOV40TA PO; FLOM0.4C39 PO; FURO20TA2 PO; METO1TAB32 PO; MIRT1TAB16 PO; OLAN2.5T25 PO; OMEP-218 PO; PRED10TA2 PO; SERT-138 PO; VALS1TAB49 PO
[2019-06-05 17:35] LABS: BLOOD UREA NITROGEN 12 MG/DL (7-18); CALCIUM LEVEL 8.7 MG/DL (8.5-10.1); CARBON DIOXIDE LEVEL 24 MEQ/L (21-32); CHLORIDE LEVEL 113 MEQ/L (98-107); CREATININE FOR GFR 0.66 MG/DL (0.70-1.30); GLOMERULAR FILTRATION RATE > 60.0 (>56); GLUCOSE, FASTING 90 MG/DL (70-100); MAGNESIUM LEVEL 2.2 MG/DL (1.8-2.4); SODIUM LEVEL 143 MEQ/L (136-145)
== END ==
LOC: M SFHCPLAZ 13:04
PROVIDERS: ATTEND Family Medicine
DX: I42.0 Dilated cardiomyopathy (principal)

== ENCOUNTER 2019-06-12 01:44 | Inpatient (IN) | payer MEDICARE ==
[2019-06-12] VITALS (13 sets, daily range): BP systolic 94–140; BP diastolic 58–81; O2SAT 94
[~2019-06-12] VITALS: Ht 175.3 cm; Wt 69.7 kg
[~2019-06-12 01:44] MED LIST changes: -VALS1TAB49 PO
[2019-06-12] MEDS ORDERED: IPRATROPIUM 0.5MG/ALBUTEROL 2.5MG INH SOL UD 3ML (DUONEB)(J7620) As Ordered ONE (01:52)
[2019-06-12] MEDS ORDERED: NITROGLYCERIN 2% OINT 1 GM *U/D* PKT TOP ONE (02:00)
[2019-06-12] MEDS ORDERED: IPRATROPIUM 0.5MG/ALBUTEROL 2.5MG INH SOL UD 3ML (DUONEB)(J7620) NEB ONE (02:00)
[2019-06-12] MEDS ORDERED: FUROSEMIDE 100 MG/10 ML VIAL (J1940) IV ONE (02:00)
[2019-06-12] MEDS ORDERED: dexameTHASONE 20 MG/5 ML VIAL (J1100) IV ONE (02:00)
[2019-06-12 02:08] LABS: BASO # 0.1 10^3/uL (0.0-0.2); BASO % 0.4 % (0.0-1.0); EOS # 0.3 10^3/uL (0.0-0.50); EOS % 2.1 % (0.0-3.0); HEMATOCRIT 39.7 % (42.0-52.0); HEMOGLOBIN 13.4 g/dl (13.5-17.5); LYMPH # 4.3 10^3/uL (1.5-4.5); LYMPH % 30.3 % (24.0-44.0); MEAN CORPUSCULAR HEMOGLOBIN 32.1 pg (27.0-33.0); MEAN CORPUSCULAR HGB CONC 33.8 g/dl (32.0-36.5); MEAN CORPUSCULAR VOLUME 95.2 fl (80.0-96.0); MONO # 1.3 10^3/uL (0.0-0.8); MONO % 9.3 % (0.0-5.0); NEUTROPHILS # 8.1 10^3/uL (1.8-7.7); NEUTROPHILS % 57.5 % (36.0-66.0); PLATELET COUNT, AUTOMATED 426 10^3/uL (150-450); RED BLOOD COUNT 4.17 10^6/uL (4.30-6.10); WHITE BLOOD COUNT 14.1 10^3/uL (4.0-10.0)
[2019-06-12 02:19] LABS: INR 1.08; PROTHROMBIN TIME 13.7 SECONDS (11.8-14.0)
[2019-06-12 02:20] LABS: PARTIAL THROMBOPLASTIN TIME 28.6 SECONDS (25.0-38.4)
[2019-06-12 02:36] LABS: BLOOD UREA NITROGEN 10 MG/DL (7-18); CALCIUM LEVEL 8.7 MG/DL (8.5-10.1); CARBON DIOXIDE LEVEL 23 MEQ/L (21-32); CHLORIDE LEVEL 110 MEQ/L (98-107); CK-MB VALUE MASS 1.2 NG/ML (<3.6); CPK CREATINE PHOSPHOKINASE 130 U/L (39-308); CREATININE FOR GFR 1.01 MG/DL (0.70-1.30); GLOMERULAR FILTRATION RATE > 60.0 (>56); GLUCOSE, FASTING 320 MG/DL (70-100); MB/CK RELATIVE INDEX 0.92 (< OR =4); NT-PRO BNP 3273 PG/ML (<125); POTASSIUM SERUM 3.4 MEQ/L (3.5-5.1); SODIUM LEVEL 142 MEQ/L (136-145); TROPONIN I < 0.02 NG/ML (< 0.10)
[2019-06-12] MEDS ORDERED: VALS1TAB49 PO (02:48)
[2019-06-12] MEDS ORDERED: PILL CUTTER 1 EACH XX PRN (04:15)
[2019-06-12] MEDS ORDERED: IPRATROPIUM 0.5MG/ALBUTEROL 2.5MG INH SOL UD 3ML (DUONEB)(J7620) NEB PRN (04:30)
--- NOTE | 2019-06-12 04:36 | HPEPDOC ---
General Date of Admission 06/12/19 Date of Service: Jun 12, 2019 Chief Complaint The patient is a 54-year-old male admitted with a reason for visit of SOB. Source: Patient, Family, RN/MD, Old records Exam Limitations: Clinical conditions Severity: Severe History of Present Illness 54 YEAR OLD MALE WITH MARGA'S DISEASE, DIALATED CARDIOMYOPATHY DUE TO HD, SYSTOLIC CONGESTIVE HEART FAILURE, RECURRENT EPISODES OF NSVT REFUSED CARDIOLOGY REFERRAL, CARDIAC WORK UP OR ICD PLACEMENT,COPD/EMPHYSEMA, SMOKER WAS HOSPITALIZED FROM MAY 14 TO MAY 18 FOR ACUTE RESPIRATORY FAILURE DUE TO SYSTOLIC CHF DUE TO DILATED CARDIOMYOPATHY PRESENTED TO THE HOSPITAL WITH 3 DAYS HISTORY OF INCREASING SOB. ON PRESENTATION TO THE ED HE WAS HYPOXIC IN ROOM AIR AND ABG REQUIRING NONREBREATHING MASK FOR OXYGENATION, TACHYCARDIC TO 127, DIAPHORETIC, CXR WITH GLOBULAR HEART AND PROMINENT VASCULAR MARKING. HE WAS FOUND TO HAVE ACUTE ON CHRONIC SYSTOLIC CHF AND ACUTE RESPIRATORY FAILURE. HE WAS PUT ON CPAP, GIVE LASIX 100 MG AND NITRO PATCH . ON MY INTERVIEW HE SAID THAT HIS BREATHING IS MUCH BETTER, DENIED ANY COUGH OR PHLEGM. HE DID NOT HAVE ANY CHEST PAIN. NO FEVER OR CHILLS. HIS ADVANCE DIRECTIVES WERE AGIN CONFIRMED AND HE REMAINS DNR AND DNI AND CPAP ONLY FOR MAMNGEMENT OF HIS CHF EXACERBATION AND GIVE HIM SOME RELIEF Home Medications Scheduled Cetirizine HCl (Cetirizine HCl) 10 Mg Tablet, 10 MG PO DAILY, (Reported) TAKES AT NOON Mirtazapine (Mirtazapine) 30 Mg Tab.rapdis, 30 MG PO QHS, (Reported) Olanzapine (Olanzapine) 2.5 Mg Tablet, 2.5 MG PO BID, (Reported) Omeprazole (Omeprazole) 20 Mg Capsule.dr, 20 MG PO DAILY, (Reported) Sertraline HCl (Sertraline HCl) 100 Mg Tablet, 100 MG PO DAILY, (Reported) Tamsulosin HCl (Flomax) 0.4 Mg Capsule, 0.4 MG PO DAILY, (Reported) once daily 1/2 hour following breakfast Valsartan (Valsartan) 40 Mg Tablet, 40 MG PO DAILY, (Reported) Allergies Coded Allergies: No Known Drug Allergies (Verified Allergy, Unknown, 05/14/19) Past Medical History Medical History MARGA'S DISEASE WITH HD-ASSOCIATED CARDIOMYOPATHY (DX 05/31) DILATED CARDIOMYOPATHY (PROB FROM HD), EF 30%, GLOBAL HYPOKINESIS ECHO 05/31; REFUSES ICD OR CARDIOLOGY REFERRAL 05/31 TOBACCO USE EMPHYSEMA/COPD BACK PAIN ENVIRONMENTAL ALLERGIES FATTY LIVER DNR,DNI (SEE MOLST 09/30) MILD HYPERLIPIDEMIA RECURRENT NONSUSTAINED V TACH 05/31; DECLINES ICD/HAZARDOUS MATERIAL TECHNICIAN SYSTOLIC CONGESTIVE HEART FAILURE PULMONARY HYPERTENSION WITH RIGHT HEART FAILURE BPH DYSPHAGIA Surgical History None Family History Significant Family History: Cancer (Lung father), COPD (father), Other (Sebastian's disease in Mother, sister, brother) Social History * Smoker: current smoker Alcohol: Denies Drugs: denies A-FIB/CHADSVASC A-FIB History Current/History of A-Fib/PAF?: No Review of Systems Constitutional: Reports: Weakness, Fatigue; Denies: Chills, Fever, Night Sweats Eyes: Denies: Pain, Vision change ENT: Reports: Dysphagia; Denies: Head Aches, Ear Pain Skin: Denies: Rash, Lesions, Breakdown Pulmonary: Reports: Dyspnea, Cough Cardiovascular: Reports: Palpitations, Orthopnea, Edema Gastrointestinal: Denies: Nausea, Vomiting, Abdominal Pain, Diarrhea Genitourinary: Reports: Frequency Musculoskeletal: Denies: Neck Pain, Back Pain, Joint Pain, Muscle Pain, Spasms Neurological: Reports: Incoordination, Other Symptoms (yulia) Psych: Reports: Anxiety Physical Examination General Exam: Positive: Alert, Cooperative, Moderate Distress Eye Exam: Positive: Conjunctiva & lids normal ENT Exam: Positive: Atraumatic, Mucous membr. moist/pink, Pharynx Normal Neck Exam: Positive: Supple, JVD Chest Exam: Positive: Clear to auscultation, Diminished, Other (crackles at both the bases); Negative: Rhonchi, Wheezing Heart Exam: Positive: Tachycardic, Regular Rhythm, Normal S1, Normal S2, Murmurs (systlic) Telemetry: Positive: Sinus, Tachycardia Abdomen Exam: Positive: Normal bowel sounds, Soft; Negative: Tenderness, Hepatospenomegaly Extremity Exam: Positive: Edema (trace), Normal pulses; Negative: Clubbing, Cyanosis Skin Exam: Positive: Nl turgor and temperature; Negative: Breakdown, Lesion Vital Signs Vital Signs Date Time Temp Pulse Resp B/P (MAP) Pulse Ox O2 Delivery O2 Flow Rate FiO2 06/12/19 04:00 105 20 100/61 (74) 95 NIPPV (BIPAP/CPAP) 70 7/31/19 02:54 98.6 06/12/19 02:14 15.0 Laboratory Data Labs 24H Laboratory Tests 2 06/12/19 02:00: Immature Granulocyte % (Auto) 0.4, White Blood Count 14.1H, Red Blood Count 4.17L, Hemoglobin 13.4L, Hematocrit 39.7L, Mean Corpuscular Volume 95.2, Mean Corpuscular Hemoglobin 32.1, Mean Corpuscular Hemoglobin Concent 33.8, Red Cell Distribution Width 14.8H, Platelet Count 426, Neutrophils (%) (Auto) 57.5, Lymphocytes (%) (Auto) 30.3, Monocytes (%) (Auto) 9.3H, Eosinophils (%) (Auto) 2.1, Basophils (%) (Auto) 0.4, Neutrophils # (Auto) 8.1H, Lymphocytes # (Auto) 4.3, Monocytes # (Auto) 1.3H, Eosinophils # (Auto) 0.3, Basophils # (Auto) 0.1, Nucleated Red Blood Cells % (auto) 0.0, Prothrombin Time 13.7, Prothromb Time International Ratio 1.08, Activated Partial Thromboplast Time 28.6, Anion Gap 9, Glomerular Filtration Rate > 60.0, Blood Urea Nitrogen 10, Creatinine 1.01, Sodium Level 142, Potassium Level 3.4L, Chloride Level 110H, Carbon Dioxide Level 23, Calcium Level 8.7, Total Creatine Kinase 130, Creatine Kinase MB 1.2, Creatine Kinase MB Relative Index 0.92, Troponin I < 0.02, AV-Bpc-N-Type Natriuretic Peptide 3273H 06/12/19 02:03: POC pH (Misc Panel) 7.262L, POC Base Excess (Misc Panel) -8.0L, POC Saturated Percent O2 (Misc) 90L, POC pO2 (Misc Panel) 68.0L, POC pCO2 (Misc Panel) 41.9, POC HCO3 (Misc Panel) 18.9L, POC Total CO2 (Misc Panel) 20.0L CBC/BMP Laboratory Tests 06/12/19 02:00 Red Blood Count 4.17 L, Mean Corpuscular Volume 95.2, Mean Corpuscular Hemoglobin 32.1, Mean Corpuscular Hemoglobin Concent 33.8, Red Cell Distribution Width 14.8 H, Neutrophils (%) (Auto) 57.5, Lymphocytes (%) (Auto) 30.3, Monocytes (%) (Auto) 9.3 H, Eosinophils (%) (Auto) 2.1, Basophils (%) (Auto) 0.4, Neutrophils # (Auto) 8.1 H, Lymphocytes # (Auto) 4.3, Monocytes # (Auto) 1.3 H, Eosinophils # (Auto) 0.3, Basophils # (Auto) 0.1, Calcium Level 8.7, Total Creatine Kinase 130 Assessment/Plan Acute respiratory failure due to CHF exacerbation continue with diuresis, CPAP and oxygen supplementation Acute on chronic systolic CHF exacerbation due to dilated cardiomyopathy from Marga's disease continue with diuresis. lasix IV 2 gram sodium diet fluid restriction 1.5 liters. continue valsartan with hold parameters. Sebastian's disease Anxiety continue with home meds. Olanzepine, sertraline, mirtazepine BPH flomax Gerd omeprazole COPD/emphysema duonebs prn xopenex tid Dysphagia continue home diet. with aspiration precautions. Plan / VTE VTE Prophylaxis Ordered?: Yes TOÑA SAGE MD Jun 12, 2019 04:36
--- NOTE | 2019-06-12 07:40 | REP ---
Clinical: Dyspnea. Comparison: 05/14/2019, 09/08/2015. Findings: Mediastinum and cardiac silhouette are within normal limits for portable technique. Lung razo demonstrate diffuse reticulonodular interstitial changes. No discrete focal consolidation. No obvious effusion. No pneumothorax. Skeletal structures intact. Impression: Diffuse reticulonodular interstitial changes. Pulmonary consultation and followup recommended. Electronically Signed by Joaquín Willard MD 06/12/2019 07:31 A
[2019-06-12] MEDS ORDERED: POTASSIUM CHLORIDE 10 MEQ SR TABLET PO ONE (08:00)
[2019-06-12] MEDS: LEVALBUTEROL 1.25 MG/0.5 ML CONCENTRATE NEB INH SCH ×3 (08:13→20:07)
--- NOTE | 2019-06-12 08:37 | IPNPDOC ---
Subjective Date Seen The patient was seen on 06/12/19. Subjective Chief Complaint/HPI Patient lying in bed as I entered the room. He reports to be feeling better Constitutional: Denies: Chills, Fever Pulmonary: Denies: Dyspnea, Cough, Pleuritic Chest Pain Cardiovascular: Denies: Chest Pain, Palpitations, Orthopnea, Edema Gastrointestinal: Denies: Nausea Neurological: Reports: Other Symptoms ([place]) Psych: Reports: Mood Normal Objective Physical Examination General Exam: Positive: Alert, Cooperative, Moderate Distress Eye Exam: Positive: Conjunctiva & lids normal ENT Exam: Positive: Atraumatic, Mucous membr. moist/pink, Pharynx Normal Neck Exam: Positive: Supple; Negative: JVD Chest Exam: Positive: Clear to auscultation, Diminished; Negative: Rales, Rhonchi, Wheezing Heart Exam: Positive: Tachycardic, Regular Rhythm, Normal S1, Normal S2, Murmurs (systlic) Telemetry: Positive: Sinus, Tachycardia Abdomen Exam: Positive: Normal bowel sounds, Soft; Negative: Tenderness, Hepatospenomegaly Extremity Exam: Positive: Normal pulses; Negative: Clubbing, Cyanosis, Edema Skin Exam: Positive: Nl turgor and temperature Neuro Exam: Positive: Other (Frequent muscle jerking ) Assessment /Plan Problems (1) Acute on chronic heart failure Status: Acute Response to Treatment: Stable Problem Text: 06/11/19: Currently on IV Lasix 40mg q 8 hours. Monitor output (2) Acute respiratory failure with hypoxia Status: Acute Response to Treatment: Stable Problem Text: 06/12/19: BiPAP and CPAP and nebs. Patient afebrile Chest X-ray: Diffuse reticulonodular interstitial changes. Pulmonary consultation and followup recommended (3) Cardiomyopathy Status: Chronic Problem Text: 06/12/19: Last ECHO was 05/14/19, LVEF 30% ECHO 05/14/19 Impression: Sinus tachycardia with incomplete left bundle branch block. Technically, challenging study in light of the patient's body habitus but diagnostically useful information was still obtained. M-mode and two-dimensional echocardiography was performed with pulsed, continuous wave, color flow and tissue Doppler studies. Moderately dilated left ventricle with normal wall thickness and moderately severe global hypokinesis resulting in moderately severe impairment of global resting systolic function. Mildly dilated left atrium. Unable to assess diastolic function in light of the persons weight and superimposition of early and late diastolic filling patterns. Right heart chambers upper limits of normal in size with marked hypokinesis of right ventricular free wall and Doppler evidence of at least moderate pulmonary hypertension. IVC size upper limits of normal with reduced respiratory collapse in keeping with elevated central venous pressure - right heart failure. Normal-appearing aortic valve with adequate cusp separation but premature cusp closure in keeping with reduced forward stroke volume. Normal-appearing mitral valvular apparatus with reduced leaflet excursion again in keeping with reduced flow. No posterior systolic buckling or prolapse but moderate eccentrically directed mitral insufficiency. Normal appearing tricuspid valve with at least mild - moderate insufficiency. No apparent intracardiac mass or pericardial effusion. The above test findings are consistent with a dilated cardiomyopathy. -Dr. Tejada (4) [place]'s disease Status: Chronic Problem Text: 06/12/19: Remains on home meds Plan/VTE VTE Prophylaxis Ordered?: Yes (Lovenox ) VS, I&O, 24H, Fishbone Vital Signs/I&O Vital Signs Date Time Temp Pulse Resp B/P (MAP) Pulse Ox O2 Delivery O2 Flow Rate FiO2 06/12/19 06:15 99.4 126 25 115/81 (92) 97 70 06/12/19 06:14 BIPAP/CPAP 06/12/19 02:14 15.0 I&O- Last 24 Hours up to 6 AM 06/12/19 06:00 Output Total 2000 ml Balance -2000 ml Laboratory Data 24H LABS Laboratory Tests 2 06/12/19 02:00: Immature Granulocyte % (Auto) 0.4, White Blood Count 14.1H, Red Blood Count 4.17L, Hemoglobin 13.4L, Hematocrit 39.7L, Mean Corpuscular Volume 95.2, Mean Corpuscular Hemoglobin 32.1, Mean Corpuscular Hemoglobin Concent 33.8, Red Cell Distribution Width 14.8H, Platelet Count 426, Neutrophils (%) (Auto) 57.5, Lymphocytes (%) (Auto) 30.3, Monocytes (%) (Auto) 9.3H, Eosinophils (%) (Auto) 2.1, Basophils (%) (Auto) 0.4, Neutrophils # (Auto) 8.1H, Lymphocytes # (Auto) 4.3, Monocytes # (Auto) 1.3H, Eosinophils # (Auto) 0.3, Basophils # (Auto) 0.1, Nucleated Red Blood Cells % (auto) 0.0, Prothrombin Time 13.7, Prothromb Time International Ratio 1.08, Activated Partial Thromboplast Time 28.6, Anion Gap 9, Glomerular Filtration Rate > 60.0, Lactic Acid Level 2.7*H, Blood Urea Nitrogen 10, Creatinine 1.01, Sodium Level 142, Potassium Level 3.4L, Chloride Level 110H, Carbon Dioxide Level 23, Calcium Level 8.7, Total Creatine Kinase 130, Creatine Kinase MB 1.2, Creatine Kinase MB Relative Index 0.92, Troponin I < 0.02, IB-Vfd-C-Type Natriuretic Peptide 3273H 06/12/19 02:03: POC pH (Misc Panel) 7.262L, POC Base Excess (Misc Panel) -8.0L, POC Saturated Percent O2 (Misc) 90L, POC pO2 (Misc Panel) 68.0L, POC pCO2 (Misc Panel) 41.9, POC HCO3 (Misc Panel) 18.9L, POC Total CO2 (Misc Panel) 20.0L CBC/BMP Laboratory Tests 06/12/19 02:00 Red Blood Count 4.17 L, Mean Corpuscular Volume 95.2, Mean Corpuscular Hemoglobin 32.1, Mean Corpuscular Hemoglobin Concent 33.8, Red Cell Distribution Width 14.8 H, Neutrophils (%) (Auto) 57.5, Lymphocytes (%) (Auto) 30.3, Monocytes (%) (Auto) 9.3 H, Eosinophils (%) (Auto) 2.1, Basophils (%) (Auto) 0.4, Neutrophils # (Auto) 8.1 H, Lymphocytes # (Auto) 4.3, Monocytes # (Auto) 1.3 H, Eosinophils # (Auto) 0.3, Basophils # (Auto) 0.1, Calcium Level 8.7, Total Creatine Kinase 130 Attending Note Attending Note Significant diuresis. Sats Ok on 2 L, will d/c BiPap and move to med/surg with Tele. D/C IV lasix, start po lasix and spironolactone. May benefit from beta maci eventually but don't want to initiate during acute decompensation but will start if HR is persistently elevated. ALLAN PETER Jun 12, 2019 07:56 Bebeto Hayes MD Jun 12, 2019 13:13
[2019-06-12] MEDS: VALSARTAN 40MG TABLET (DIOVAN) PO SCH (09:00)
[2019-06-12] MEDS ORDERED: VALSARTAN 80 MG TAB (DIOVAN) PO SCH (09:00)
[2019-06-12] MEDS: ENOXAPARIN 40 MG/0.4 ML SYRINGE (J1650) SC SCH (10:35)
[2019-06-12] MEDS: OMEPRAZOLE 20 MG CAP PO SCH (10:36)
[2019-06-12] MEDS: TAMSULOSIN 0.4 MG CAP PO SCH (10:36)
[2019-06-12] MEDS: SERTRALINE 100 MG TAB PO SCH (10:36)
[2019-06-12] MEDS ORDERED: FUROSEMIDE 40 MG/4 ML VIAL (J1940) IV SCH (11:00)
[2019-06-12] MEDS: OLANZapine 2.5MG TABLET PO SCH ×2 (12:47→22:17)
[2019-06-12] MEDS: SPIRONOLACTONE 25 MG TAB PO SCH (15:30)
[2019-06-12] MEDS: FUROSEMIDE 40 MG TAB PO SCH (16:46)
--- NOTE | 2019-06-12 19:35 | ECGEPIP ---
[facility] - ED Test Date: 2019-06-12 Pat Name: CASSANDRA EDMONDS Department: Room: [place] [address] Gender: Male Manager Games: lizzie : [id number] Requested By: SUDHA RAYMOND Order Number: [id number] Reading MD: Jeanne Franco Measurements Intervals [place] Rate: 135 P: 11 TX: 140 QRS: -14 QRSD: 114 T: 113 QT: 302 QTc: 453 Interpretive Statements PROBABLE SINUS TACHYCARDIA MODERATE INTRAVENTRICULAR CONDUCTION DELAY NONSPECIFIC ST & T-WAVE ABNORMALITY INCREASED RATE 05/15/19 Electronically Signed on 06-12-2019 19:35:30 EDT by Jeanne Franco
[2019-06-12] MEDS: MIRTAZAPINE 15 MG TAB PO SCH (22:17)
[2019-06-13 05:57] LABS: BASO % 0.2 % (0.0-1.0); EOS % 0.1 % (0.0-3.0); HEMATOCRIT 37.8 % (42.0-52.0); HEMOGLOBIN 13.3 g/dl (13.5-17.5); LYMPH # 2.6 10^3/uL (1.5-4.5); LYMPH % 13.3 % (24.0-44.0); MEAN CORPUSCULAR HEMOGLOBIN 31.5 pg (27.0-33.0); MEAN CORPUSCULAR HGB CONC 35.2 g/dl (32.0-36.5); MEAN CORPUSCULAR VOLUME 89.6 fl (80.0-96.0); MONO % 10.4 % (0.0-5.0); NEUTROPHILS # 14.5 10^3/uL (1.8-7.7); NEUTROPHILS % 75.3 % (36.0-66.0); PLATELET COUNT, AUTOMATED 365 10^3/uL (150-450); RED BLOOD COUNT 4.22 10^6/uL (4.30-6.10); WHITE BLOOD COUNT 19.3 10^3/uL (4.0-10.0)
[2019-06-13 06:00] VITALS: BP 116/71
[2019-06-13 06:27] LABS: BLOOD UREA NITROGEN 17 MG/DL (7-18); CALCIUM LEVEL 8.6 MG/DL (8.5-10.1); CARBON DIOXIDE LEVEL 25 MEQ/L (21-32); CHLORIDE LEVEL 106 MEQ/L (98-107); CREATININE FOR GFR 0.82 MG/DL (0.70-1.30); GLOMERULAR FILTRATION RATE > 60.0 (>56); GLUCOSE, FASTING 113 MG/DL (70-100); POTASSIUM SERUM 3.8 MEQ/L (3.5-5.1); SODIUM LEVEL 139 MEQ/L (136-145)
[2019-06-13] MEDS: LEVALBUTEROL 1.25 MG/0.5 ML CONCENTRATE NEB INH SCH ×3 (07:04→20:36)
--- NOTE | 2019-06-13 07:50 | IPNPDOC ---
Subjective Date Seen The patient was seen on 06/13/19. Subjective Chief Complaint/HPI Patient sitting on edge of bed finishing breakfast as I entered the room this morning. He reports cough with sputum production, chest congestion that clears with cough. No events over night. Denies fever, chills or sweats, no change in appetite Constitutional: Denies: Chills, Fever Pulmonary: Reports: Cough, Other Symptoms (Sputum production ); Denies: Dyspnea, Pleuritic Chest Pain Cardiovascular: Denies: Chest Pain, Palpitations, Orthopnea, Edema Gastrointestinal: Denies: Nausea, Vomiting, Abdominal Pain Psych: Reports: Mood Normal Objective Physical Examination General Exam: Positive: Alert, Cooperative, Moderate Distress Eye Exam: Positive: Conjunctiva & lids normal ENT Exam: Positive: Atraumatic, Mucous membr. moist/pink, Pharynx Normal Neck Exam: Positive: Supple; Negative: JVD Chest Exam: Positive: Clear to auscultation, Diminished (bilateral lower lobes); Negative: Rales, Rhonchi, Wheezing Heart Exam: Positive: Regular Rhythm, Normal S1, Normal S2, Murmurs (systlic) Telemetry: Positive: Sinus Abdomen Exam: Positive: Normal bowel sounds, Soft; Negative: Tenderness, Hepatospenomegaly Extremity Exam: Positive: Normal pulses; Negative: Clubbing, Cyanosis, Edema Skin Exam: Positive: Nl turgor and temperature Neuro Exam: Positive: Other (Frequent muscle jerking ) Assessment /Plan Problems (1) Acute on chronic heart failure Status: Acute Response to Treatment: Stable Problem Text: 06/13/19: Patient diuresed -0693 yesterday. Is now on Lasix 40mg po bid and Spironolactone 25 mg q am. Repeat chest x-ray this morning 06/11/19: Currently on IV Lasix 40mg q 8 hours. Monitor output (2) Cough Status: Acute Problem Text: 06/13/19: Patient reports progressive cough throughout the night with sputum production. He remains afebrile. O2 98% on RA, however, WBC is up to 19.3 with Neutrophil count 75%. Repeat chest x-ray this morning. Sputum culture and resp panel pending. (3) Cardiomyopathy Status: Chronic Problem Text: 06/12/19: Last ECHO was 05/14/19, LVEF 30% ECHO 05/14/19 Impression: Sinus tachycardia with incomplete left bundle branch block. Technically, challenging study in light of the patient's body habitus but diagnostically useful information was still obtained. M-mode and two-dimensional echocardiography was performed with pulsed, continuous wave, color flow and tissue Doppler studies. Moderately dilated left ventricle with normal wall thickness and moderately severe global hypokinesis resulting in moderately severe impairment of global resting systolic function. Mildly dilated left atrium. Unable to assess diastolic function in light of the persons weight and superimposition of early and late diastolic filling patterns. Right heart chambers upper limits of normal in size with marked hypokinesis of right ventricular free wall and Doppler evidence of at least moderate pulmonary hypertension. IVC size upper limits of normal with reduced respiratory collapse in keeping with elevated central venous pressure - right heart failure. Normal-appearing aortic valve with adequate cusp separation but premature cusp closure in keeping with reduced forward stroke volume. Normal-appearing mitral valvular apparatus with reduced leaflet excursion again in keeping with reduced flow. No posterior systolic buckling or prolapse but moderate eccentrically directed mitral insufficiency. Normal appearing tricuspid valve with at least mild - moderate insufficiency. No apparent intracardiac mass or pericardial effusion. The above test findings are consistent with a dilated cardiomyopathy. -Dr. Tejada (4) Marga's disease Status: Chronic Problem Text: 06/12/19: Remains on home meds (5) Acute respiratory failure with hypoxia Status: Resolved Problem Text: 06/13/19: Resolved. O2 98% on RA 06/12/19: BiPAP and CPAP and nebs. Patient afebrile Chest X-ray: Diffuse reticulonodular interstitial changes. Pulmonary consultation and followup recommended Plan/VTE VTE Prophylaxis Ordered?: Yes (Lovenox ) VS, [facility]O, [facility] Vital Signs/I&O Vital Signs Date Time Temp Pulse Resp B/P (MAP) Pulse Ox O2 Delivery O2 Flow Rate FiO2 06/13/19 06:00 98.2 64 15 116/71 (86) 98 06/12/19 20:08 Nasal Cannula 2.0 06/12/19 08:13 50 I&O- Last 24 Hours up to 6 AM 06/13/19 06:00 Intake Total 1450 ml Output Total 3125 ml Balance -1675 ml Laboratory Data 24H LABS Laboratory Tests 2 06/12/19 08:21: Lactic Acid Followup at 4 Hours 1.0 06/12/19 22:07: Bedside Glucose (Misc Panel) 146H 06/13/19 05:38: Immature Granulocyte % (Auto) 0.7, White Blood Count 19.3H, Red Blood Count 4.22L, Hemoglobin 13.3L, Hematocrit 37.8L, Mean Corpuscular Volume 89.6, Mean Corpuscular Hemoglobin 31.5, Mean Corpuscular Hemoglobin Concent 35.2, Red Cell Distribution Width 14.5, Platelet Count 365, Neutrophils (%) (Auto) 75.3H, Lymphocytes (%) (Auto) 13.3L, Monocytes (%) (Auto) 10.4H, Eosinophils (%) (Auto) 0.1, Basophils (%) (Auto) 0.2, Neutrophils # (Auto) 14.5H, Lymphocytes # (Auto) 2.6, Monocytes # (Auto) 2.0H, Eosinophils # (Auto) 0.0, Basophils # (Auto) 0.0, Nucleated Red Blood Cells % (auto) 0.0, Anion Gap 8, Glomerular Filtration Rate > 60.0, Blood Urea Nitrogen 17#, Creatinine 0.82, Sodium Level 139, Potassium Level 3.8, Chloride Level 106, Carbon Dioxide Level 25, Calcium Level 8.6 CBC/BMP Laboratory Tests 06/13/19 05:38 Red Blood Count 4.22 L, Mean Corpuscular Volume 89.6, Mean Corpuscular Hemoglobin 31.5, Mean Corpuscular Hemoglobin Concent 35.2, Red Cell Distribution Width 14.5, Neutrophils (%) (Auto) 75.3 H, Lymphocytes (%) (Auto) 13.3 L, [place] cytes (%) (Auto) 10.4 H, Eosinophils (%) (Auto) 0.1, Basophils (%) (Auto) 0.2, Neutrophils # (Auto) 14.5 H, Lymphocytes # (Auto) 2.6, Monocytes # (Auto) 2.0 H, Eosinophils # (Auto) 0.0, Basophils # (Auto) 0.0, Calcium Level 8.6 ALLAN PETER [facility] Jun 13, 2019 07:50
[2019-06-13] MEDS: VALSARTAN 40MG TABLET (DIOVAN) PO SCH (09:00)
--- NOTE | 2019-06-13 09:00 | REP ---
Clinical: History of CHF/shortness of breath . Comparison: 06/12/2019 . Technique: PA and lateral. Findings: The mediastinum and cardiac silhouette are normal. The lung razo demonstrate improved aeration without acute consolidation, effusion, or pneumothorax. The skeletal structures are intact and normal. Impression: 1. Improved aeration. 2. Chronic stable changes. No acute process appreciated. Electronically Signed by Joaquín Willard MD 06/13/2019 08:51 A
[2019-06-13] MEDS: SERTRALINE 100 MG TAB PO SCH (09:13)
[2019-06-13] MEDS: OMEPRAZOLE 20 MG CAP PO SCH (09:14)
[2019-06-13] MEDS: FUROSEMIDE 40 MG TAB PO SCH ×2 (09:14→17:18)
[2019-06-13] MEDS: TAMSULOSIN 0.4 MG CAP PO SCH (09:14)
[2019-06-13] MEDS: SPIRONOLACTONE 25 MG TAB PO SCH (09:14)
[2019-06-13] MEDS: OLANZapine 2.5MG TABLET PO SCH ×2 (09:14→21:50)
[2019-06-13] MEDS: ENOXAPARIN 40 MG/0.4 ML SYRINGE (J1650) SC SCH (09:15)
[2019-06-13 14:00] VITALS: BP 102/54
[2019-06-13 20:00] VITALS: BP 113/74
[2019-06-13] MEDS: MIRTAZAPINE 15 MG TAB PO SCH (21:50)
[2019-06-14 05:29] LABS: BASO # 0.1 10^3/uL (0.0-0.2); BASO % 0.4 % (0.0-1.0); EOS # 0.1 10^3/uL (0.0-0.50); EOS % 1.1 % (0.0-3.0); HEMATOCRIT 46.4 % (42.0-52.0); LYMPH # 3.5 10^3/uL (1.5-4.5); MEAN CORPUSCULAR HEMOGLOBIN 31.7 pg (27.0-33.0); MEAN CORPUSCULAR HGB CONC 33.6 g/dl (32.0-36.5); MEAN CORPUSCULAR VOLUME 94.3 fl (80.0-96.0); MONO # 1.5 10^3/uL (0.0-0.8); MONO % 12.3 % (0.0-5.0); NEUTROPHILS # 6.9 10^3/uL (1.8-7.7); NEUTROPHILS % 56.7 % (36.0-66.0); PLATELET COUNT, AUTOMATED 435 10^3/uL (150-450); RED BLOOD COUNT 4.92 10^6/uL (4.30-6.10); WHITE BLOOD COUNT 12.2 10^3/uL (4.0-10.0)
[2019-06-14 05:34] LABS: HEMOGLOBIN 15.6 g/dl (13.5-17.5)
[2019-06-14 05:59] LABS: BLOOD UREA NITROGEN 22 MG/DL (7-18); CALCIUM LEVEL 9.1 MG/DL (8.5-10.1); CARBON DIOXIDE LEVEL 29 MEQ/L (21-32); CHLORIDE LEVEL 106 MEQ/L (98-107); CREATININE FOR GFR 1.04 MG/DL (0.70-1.30); GLOMERULAR FILTRATION RATE > 60.0 (>56); GLUCOSE, FASTING 112 MG/DL (70-100); SODIUM LEVEL 141 MEQ/L (136-145)
[2019-06-14] MEDS: LEVALBUTEROL 1.25 MG/0.5 ML CONCENTRATE NEB INH SCH ×3 (07:07→19:56)
[2019-06-14] MEDS: ENOXAPARIN 40 MG/0.4 ML SYRINGE (J1650) SC SCH (08:55)
[2019-06-14] MEDS: METOPROLOL SUCC *XL* 12.5MG PER 1/2 TAB (TopROL *XL*) PO SCH ×2 (08:55→12:51)
[2019-06-14] MEDS: VALSARTAN 40MG TABLET (DIOVAN) PO SCH (08:55)
[2019-06-14] MEDS: TAMSULOSIN 0.4 MG CAP PO SCH (08:56)
[2019-06-14] MEDS: SPIRONOLACTONE 25 MG TAB PO SCH (08:56)
[2019-06-14] MEDS: SERTRALINE 100 MG TAB PO SCH (08:56)
[2019-06-14] MEDS: OMEPRAZOLE 20 MG CAP PO SCH (08:56)
[2019-06-14] MEDS: FUROSEMIDE 40 MG TAB PO SCH (08:57)
[2019-06-14 08:59] LABS: APPEARANCE, URINE CLEAR (CLEAR); BACTERIA, URINE AUTO NEGATIVE (NEGATIVE); BILIRUBIN, URINE AUTO NEGATIVE (NEGATIVE); BLOOD, URINE BLOOD NEGATIVE (NEGATIVE); COLOR, URINE YELLOW (YELLOW); GLUCOSE, URINE (UA) AUTO NEGATIVE (NEGATIVE); KETONE, URINE AUTO NEGATIVE (NEGATIVE); LEUKOCYTE ESTERASE, URINE AUTO 1+ (NEGATIVE); MUCUS, URINE SMALL (NEGATIVE); NITRITE, URINE AUTO NEGATIVE (NEGATIVE); PROTEIN, URINE AUTO NEGATIVE (NEGATIVE); RBC, URINE AUTO 9 /HPF (0-3); SQUAMOUS EPITHELIAL CELL UR AU 0 /HPF (0-6); UROBILINOGEN, URINE AUTO 0.2 mg/dL (0.0-2.0); WBC, URINE AUTO 11 /HPF (0-3)
--- NOTE | 2019-06-14 09:08 | IPNPDOC ---
Subjective Date Seen The patient was seen on 06/14/19. Subjective Chief Complaint/HPI Patient sitting comfortably in bed as I entered the room. He offers no complaints today Constitutional: Denies: Chills Pulmonary: Denies: Dyspnea, Cough Cardiovascular: Denies: Chest Pain, Palpitations, Orthopnea, Edema Gastrointestinal: Denies: Nausea, Vomiting Psych: Reports: Mood Normal Objective Physical Examination General Exam: Positive: Alert, Cooperative, Moderate Distress Eye Exam: Positive: Conjunctiva & lids normal ENT Exam: Positive: Atraumatic, Mucous membr. moist/pink, Pharynx Normal Neck Exam: Positive: Supple; Negative: JVD Chest Exam: Positive: Clear to auscultation, Diminished (bilateral lower lobes); Negative: Rales, Rhonchi, Wheezing Heart Exam: Positive: Regular Rhythm, Normal S1, Normal S2, Murmurs (systlic) Telemetry: Positive: Sinus Abdomen Exam: Positive: Normal bowel sounds, Soft; Negative: Tenderness, Hepatospenomegaly Extremity Exam: Positive: Normal pulses; Negative: Clubbing, Cyanosis, Edema Skin Exam: Positive: Nl turgor and temperature Neuro Exam: Positive: Other (Frequent muscle jerking ) Assessment /Plan Problems (1) Acute on chronic heart failure Status: Acute Response to Treatment: Stable Problem Text: 06/14/19: Patient appears well compensated today. His Lasix was reduced to 40mg po q day. Metoprolol 12.5mg was added. He remains on Spironolactone 25mg daily and Valsartan 40mg daily. We are going to wean him off his O2. Plan for d/c tomorrow 06/13/19: Patient diuresed -[id number] yesterday. Is now on Lasix 40mg po bid and Spironolactone 25 mg q am. Repeat chest x-ray this morning 06/11/19: Currently on IV Lasix 40mg q 8 hours. Monitor output (2) Cough Status: Acute Problem Text: 06/14/19: Resp panel negative. WBC down to 12.2. Sputum culture pending. Patient remains afebrile Chest X-ray: Impression: 1. Improved aeration. 2. Chronic stable changes. No acute process appreciated. 06/13/19: Patient reports progressive cough throughout the night with sputum production. He remains afebrile. O2 98% on RA, however, WBC is up to 19.3 with Neutrophil count 75%. Repeat chest x-ray this morning. Sputum culture and resp panel pending. (3) Cardiomyopathy Status: Chronic Problem Text: 06/12/19: Last ECHO was 05/14/19, LVEF 30% ECHO 05/14/19 Impression: Sinus tachycardia with incomplete left bundle branch block. Technically, challenging study in light of the patient's body habitus but diagnostically useful information was still obtained. M-mode and two-dimensional echocardiography was performed with pulsed, continuous wave, color flow and tissue Doppler studies. Moderately dilated left ventricle with normal wall thickness and moderately severe global hypokinesis resulting in moderately severe impairment of global resting systolic function. Mildly dilated left atrium. Unable to assess diastolic function in light of the persons weight and superimposition of early and late diastolic filling patterns. Right heart chambers upper limits of normal in size with marked hypokinesis of right ventricular free wall and Doppler evidence of at least moderate pulmonary hypertension. IVC size upper limits of normal with reduced respiratory collapse in keeping with elevated central venous pressure - right heart failure. Normal-appearing aortic valve with adequate cusp separation but premature cusp closure in keeping with reduced forward stroke volume. Normal-appearing mitral valvular apparatus with reduced leaflet excursion again in keeping with reduced flow. No posterior systolic buckling or prolapse but moderate eccentrically directed mitral insufficiency. Normal appearing tricuspid valve with at least mild - moderate insufficiency. No apparent intracardiac mass or pericardial effusion. The above test findings are consistent with a dilated cardiomyopathy. -Dr. Tejada (4) [place]'s disease Status: Chronic Problem Text: 06/12/19: Remains on home meds (5) Acute respiratory failure with hypoxia Status: Resolved Problem Text: 06/13/19: Resolved. O2 98% on RA 06/12/19: BiPAP and CPAP and nebs. Patient afebrile Chest X-ray: Diffuse reticulonodular interstitial changes. Pulmonary consultation and followup recommended Plan/VTE VTE Prophylaxis Ordered?: Yes (Lovenox ) VS, I&O, 24H, Fishbone Vital Signs/I&O Vital Signs Date Time Temp Pulse Resp B/P (MAP) Pulse Ox O2 Delivery O2 Flow Rate FiO2 06/14/19 08:55 108 102/70 06/14/19 06:00 97.1 20 95 06/14/19 06:00 2.0 06/12/19 20:08 Nasal Cannula 06/12/19 08:13 50 I&O- Last 24 Hours up to 6 AM 06/14/19 06:00 Intake Total 1516 ml Output Total 2450 ml Balance -934 ml Laboratory Data 24H LABS Laboratory Tests 2 06/14/19 05:17: Immature Granulocyte % (Auto) 0.5, White Blood Count 12.2H, Red Blood Count 4.92, Hemoglobin 15.6#, Hematocrit 46.4, Mean Corpuscular Volume 94.3, Mean Corpuscular Hemoglobin 31.7, Mean Corpuscular Hemoglobin Concent 33.6, Red Cell Distribution Width 14.5, Platelet Count 435, Neutrophils (%) (Auto) 56.7, Lymphocytes (%) (Auto) 29.0, Monocytes (%) (Auto) 12.3H, Eosinophils (%) (Auto) 1.1, Basophils (%) (Auto) 0.4, Neutrophils # (Auto) 6.9, Lymphocytes # (Auto) 3.5, Monocytes # (Auto) 1.5H, Eosinophils # (Auto) 0.1, Basophils # (Auto) 0.1, Nucleated Red Blood Cells % (auto) 0.0, Anion Gap 6L, Glomerular Filtration Rate > 60.0, Blood Urea Nitrogen 22H, Creatinine 1.04, Sodium Level 141, Potassium Level 4.0, Chloride Level 106, Carbon Dioxide Level 29, Calcium Level 9.1 06/14/19 08:13: Urine Appearance CLEAR, Urine Color YELLOW, Urine pH 6.0, Urine Specific [place] 1.020, Urine Protein NEGATIVE, Urine Glucose (UA) NEGATIVE, Urine Ketones NEGA TIVE, Urine Urobilinogen 0.2, Urine Bilirubin NEGATIVE, Urine Leukocyte Esterase 1+H, Urine Blood NEGATIVE, Urine Nitrite NEGATIVE, Urine WBC (Auto) 11H, Urine RBC (Auto) 9H, Urine Hyaline Casts (Auto) 0, Urine Bacteria (Auto) NEGATIVE, Urine Squamous Epithelial Cells 0, Urine Mucus (Auto) SMALL, Urine Sperm (Auto) CBC/BMP Laboratory Tests 06/14/19 05:17 Red Blood Count 4.92, Mean Corpuscular Volume 94.3, Mean Corpuscular Hemoglobin 31.7, Mean Corpuscular Hemoglobin Concent 33.6, Red Cell Distribution Width 14.5, Neutrophils (%) (Auto) 56.7, Lymphocytes (%) (Auto) 29.0, Monocytes (%) (Auto) 12.3 H, Eosinophils (%) (Auto) 1.1, Basophils (%) (Auto) 0.4, Neutrophils # (Auto) 6.9, Lymphocytes # (Auto) 3.5, Monocytes # (Auto) 1.5 H, Eosinophils # (Auto) 0.1, Basophils # (Auto) 0.1, Calcium Level 9.1 Microbiology Microbiology 06/13/19 Gram Stain - Final, Resulted 06/13/19 Sputum Culture, Resulted Pending 06/13/19 Respiratory Virus Panel (PCR) (CHARLI) - Final, Complete [facility] Jun 14, 2019 09:08
[2019-06-14] MEDS: OLANZapine 2.5MG TABLET PO SCH ×2 (11:26→21:57)
[2019-06-14 12:34] VITALS: BP 132/68
[2019-06-14 14:00] VITALS: BP 130/60
[2019-06-14] MEDS: MIRTAZAPINE 15 MG TAB PO SCH (21:57)
[2019-06-14 22:00] VITALS: BP 119/84
[2019-06-15 06:00] VITALS: BP 121/80
[2019-06-15 06:48] LABS: BASO % 0.4 % (0.0-1.0); EOS # 0.3 10^3/uL (0.0-0.50); EOS % 3.1 % (0.0-3.0); HEMATOCRIT 46.1 % (42.0-52.0); HEMOGLOBIN 15.6 g/dl (13.5-17.5); LYMPH # 2.9 10^3/uL (1.5-4.5); LYMPH % 30.3 % (24.0-44.0); MEAN CORPUSCULAR HEMOGLOBIN 31.5 pg (27.0-33.0); MEAN CORPUSCULAR HGB CONC 33.8 g/dl (32.0-36.5); MEAN CORPUSCULAR VOLUME 92.9 fl (80.0-96.0); MONO # 1.1 10^3/uL (0.0-0.8); MONO % 11.7 % (0.0-5.0); NEUTROPHILS # 5.2 10^3/uL (1.8-7.7); NEUTROPHILS % 53.9 % (36.0-66.0); PLATELET COUNT, AUTOMATED 436 10^3/uL (150-450); RED BLOOD COUNT 4.96 10^6/uL (4.30-6.10); WHITE BLOOD COUNT 9.6 10^3/uL (4.0-10.0)
[2019-06-15 07:04] LABS: BLOOD UREA NITROGEN 18 MG/DL (7-18); CALCIUM LEVEL 8.5 MG/DL (8.5-10.1); CARBON DIOXIDE LEVEL 28 MEQ/L (21-32); CHLORIDE LEVEL 106 MEQ/L (98-107); CREATININE FOR GFR 0.93 MG/DL (0.70-1.30); GLOMERULAR FILTRATION RATE > 60.0 (>56); GLUCOSE, FASTING 100 MG/DL (70-100); POTASSIUM SERUM 3.8 MEQ/L (3.5-5.1); SODIUM LEVEL 141 MEQ/L (136-145)
[2019-06-15] MEDS: LEVALBUTEROL 1.25 MG/0.5 ML CONCENTRATE NEB INH SCH (08:00)
[2019-06-15] MEDS ORDERED: METO1TAB32 PO (08:56)
[2019-06-15] MEDS ORDERED: FURO40TA2 PO (08:56)
[2019-06-15] MEDS ORDERED: ALDA25TA2 PO (08:56)
[2019-06-15] MEDS: TAMSULOSIN 0.4 MG CAP PO SCH (08:59)
[2019-06-15] MEDS: SPIRONOLACTONE 25 MG TAB PO SCH (08:59)
[2019-06-15] MEDS: VALSARTAN 40MG TABLET (DIOVAN) PO SCH (09:00)
[2019-06-15] MEDS: OMEPRAZOLE 20 MG CAP PO SCH (09:00)
[2019-06-15] MEDS: OLANZapine 2.5MG TABLET PO SCH (09:01)
[2019-06-15] MEDS: SERTRALINE 100 MG TAB PO SCH (09:01)
[2019-06-15 09:02] VITALS: BP 121/80
[2019-06-15] MEDS: ENOXAPARIN 40 MG/0.4 ML SYRINGE (J1650) SC SCH (09:02)
[2019-06-15] MEDS: METOPROLOL SUCC *XL* 12.5MG PER 1/2 TAB (TopROL *XL*) PO SCH (09:02)
[2019-06-15] MEDS: FUROSEMIDE 40 MG TAB PO SCH (09:03)
--- NOTE | 2019-06-15 12:08 | DSES ---
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 He has repeatedly in the past declined cardiology referral or workup for automatic implantable cardiac defibrillator placement. He has a history of smoking as well. He was hypoxic on room air on presentation having evidence of congestive failure manifested by diffuse interstitial infiltrates, basilar predominance noted with tachycardia and wheezing and rales at the base, and diminished airflow. He was treated with IV diuretics with improvement, persistently somewhat tachycardic. Low dose metoprolol succinate 12.5 mg was added and at this time he seems to be tolerating this agent well. Blood pressures today 121/80, pulse 89, respiratory rate is 16, unlabored, O2 sat 96% and he did demonstrate a normal oximetry on room air. Medications were modified so that his discharge medications include: - Lasix 40 mg daily - metoprolol succinate 12.5 mg daily - spironolactone 25 mg daily - valsartan 40 mg daily - mirtazapine 30 mg at bedtime - olanzapine 2.5 mg b.i.d. - Zoloft 100 mg daily - tamsulosin 0.4 mg daily - omeprazole 20 mg daily He did receive nebulized therapies in the hospital, but has not needed those in the last couple of days. DISCHARGE DIAGNOSES: Acute to decompensation of chronic systolic biventricular failure. Panther Burn's disease. Symptomatic benign prostatic hypertrophy (BPH), treated with tamsulosin. PLAN: Medications as listed. Activity as tolerated. 1500 mL fluid restriction and 2 grams sodium restriction recommended. His p.o. intake in hospital was typically between 1100 and 1800. It was 1000 yesterday. Weight on June 12 was 69.7 kg.
== END 2019-06-15 12:09 | disposition home or self-care (01) | DRG 291 ==
LOC: M ED 01:44 → M ED INP 03:51 → M ICU 06:10 → M MSPAV 15:18
PROVIDERS: ADMIT Internal Medicine Nephrology; ATTEND Family Medicine
DX: I50.33 Acute on chronic diastolic (congestive) heart failure (principal); J96.01 Acute respiratory failure with hypoxia; G10 Huntington's disease; I42.0 Dilated cardiomyopathy; I47.1 Supraventricular tachycardia; J44.9 Chronic obstructive pulmonary disease, unspecified; K76.0 Fatty (change of) liver, not elsewhere classified; E78.5 Hyperlipidemia, unspecified; I27.20 Pulmonary hypertension, unspecified; Z66 Do not resuscitate; I50.810 Right heart failure, unspecified; N40.0 Benign prostatic hyperplasia without lower urinary tract symptoms; R13.10 Dysphagia, unspecified; F17.200 Nicotine dependence, unspecified, uncomplicated; F41.9 Anxiety disorder, unspecified; F02.80 Dementia in other diseases classified elsewhere, unspecified severity, without behavioral disturbance, psychotic disturbance, mood disturbance, and anxiety; Z79.899 Other long term (current) drug therapy

== ENCOUNTER 2019-10-08 20:49 | Emergency (ER) | payer MEDICARE ==
[~2019-10-08 20:49] MED LIST changes: +ALDA25TA2 PO; -ALL10TAB28 PO; +ALL10TAB29 PO; +FURO40TA2 PO; +VALS40TA9 PO
[2019-10-08] MEDS ORDERED: clonazePAM 0.5 MG TAB PO ONE (21:45)
[2019-10-08] MEDS ORDERED: PILL CUTTER 1 EACH XX ONE (22:19)
[2019-10-08 23:08] LABS: INFLUENZA A AMPLIFICATION NEGATIVE (NEGATIVE); INFLUENZA B AMPLIFICATION NEGATIVE (NEGATIVE)
[2019-10-08] MEDS ORDERED: KLON0.5T PO (23:49)
[2019-10-08] MEDS ORDERED: TESS100C PO (23:49)
[2019-10-09] MEDS ORDERED: BENZONATATE 100 MG CAP PO ONE
[2019-10-09 00:09] VITALS: BP 100/72
== END 2019-10-09 00:16 | disposition home or self-care (01) ==
LOC: M ED 20:49
DX: R05 Cough (principal); F41.1 Generalized anxiety disorder; J44.9 Chronic obstructive pulmonary disease, unspecified; G10 Huntington's disease; Z79.899 Other long term (current) drug therapy; F17.210 Nicotine dependence, cigarettes, uncomplicated

== ENCOUNTER 2019-10-22 14:10 | Emergency (ER) | payer MEDICARE ==
[~2019-10-22] VITALS: Ht 177.8 cm; Wt 68.6 kg
[~2019-10-22 14:10] MED LIST changes: +KLON0.5T PO; +TESS100C PO
[2019-10-22] MEDS ORDERED: LORazepam 1 MG TAB PO STA (15:17)
[2019-10-22] MEDS ORDERED: ATIV1TAB7 PO (16:26)
[2019-10-22 17:15] VITALS: BP 110/60
== END 2019-10-22 17:18 | disposition home or self-care (01) ==
LOC: M ED 14:10
DX: F41.0 Panic disorder [episodic paroxysmal anxiety] (principal); G20 Parkinson's disease; G10 Huntington's disease; F17.200 Nicotine dependence, unspecified, uncomplicated; F32.9 Major depressive disorder, single episode, unspecified

== ENCOUNTER 2019-10-25 12:03 | Inpatient (IN) | payer MEDICARE ==
[~2019-10-25] VITALS: Ht 175.3 cm; Wt 75.9 kg
[~2019-10-25 12:03] MED LIST changes: +ATIV1TAB7 PO
[2019-10-25] MEDS ORDERED: ALBUTEROL SULFATE 2.5 MG/0.5 ML INH NEB SOLN INH ONE (13:30)
[2019-10-25] MEDS ORDERED: IPRATROPIUM 0.5MG/ALBUTEROL 2.5MG INH SOL UD 3ML (DUONEB)(J7620) NEB ONE (13:30)
[2019-10-25 13:44] LABS: VENOUS BASE EXCESS -7.5 (-2.0-2.0); VENOUS HCO3 15.9 MEQ/L (23.0-27.0); VENOUS O2 SATURATION 40.6 % (60.0-80.0); VENOUS PARTIAL PRESSURE CO2 26.8 mmHg (38.0-50.0); VENOUS PARTIAL PRESSURE O2 26.8 mmHg (30.0-50.0); VENOUS PH 7.391 UNITS (7.330-7.430); VENOUS STANDARD HCO3 17.3 MEQ/L; VENOUS TOTAL CO2 16.7 MEQ/L (24.0-28.0)
[2019-10-25 13:51] LABS: BASO % 0.1 % (0.0-1.0); HEMATOCRIT 38.1 % (42.0-52.0); HEMOGLOBIN 12.4 g/dl (13.5-17.5); LYMPH # 2.1 10^3/uL (1.5-5.0); LYMPH % 10.5 % (24.0-44.0); MEAN CORPUSCULAR HEMOGLOBIN 31.9 pg (27.0-33.0); MEAN CORPUSCULAR HGB CONC 32.5 g/dl (32.0-36.5); MEAN CORPUSCULAR VOLUME 97.9 fl (80.0-96.0); MONO % 12.7 % (0.0-5.0); NEUTROPHILS # 15.4 10^3/uL (1.5-8.5); NEUTROPHILS % 75.9 % (36.0-66.0); PLATELET COUNT, AUTOMATED 293 10^3/uL (150-450); RED BLOOD COUNT 3.89 10^6/uL (4.30-6.10); WHITE BLOOD COUNT 20.3 10^3/uL (4.0-10.0)
[2019-10-25 14:03] LABS: INR 1.84
[2019-10-25 14:09] LABS: MONO # 2.6 10^3/uL (0.0-0.8)
[2019-10-25 14:32] LABS: ALBUMIN 3.1 GM/DL (3.2-5.2); ALT/SGPT 1259 U/L (12-78); BILIRUBIN,DIRECT 2.1 MG/DL (0.0-0.2); BILIRUBIN,TOTAL 3.5 MG/DL (0.2-1.0); BLOOD UREA NITROGEN 51 MG/DL (7-18); CALCIUM LEVEL 8.5 MG/DL (8.5-10.1); CARBON DIOXIDE LEVEL 23 MEQ/L (21-32); CHLORIDE LEVEL 99 MEQ/L (98-107); CK-MB VALUE MASS 5.7 NG/ML (<3.6); CPK CREATINE PHOSPHOKINASE 380 U/L (39-308); GLOMERULAR FILTRATION RATE > 60.0 (>56); GLUCOSE, FASTING 117 MG/DL (70-100); LIPASE 78 U/L (73-393); NT-PRO BNP 7131 PG/ML (<125); POTASSIUM SERUM 4.7 MEQ/L (3.5-5.1); SODIUM LEVEL 133 MEQ/L (136-145); THYROXINE (T4) 7.6 UG/DL (4.5-12.0); TOTAL PROTEIN 5.5 GM/DL (6.4-8.2); TROPONIN I 0.06 NG/ML (< 0.10)
[2019-10-25 14:44] LABS: INFLUENZA A AMPLIFICATION NEGATIVE (NEGATIVE); INFLUENZA B AMPLIFICATION NEGATIVE (NEGATIVE)
[2019-10-25] MEDS ORDERED: ISOVUE-370 76% 100ML VIAL (Q9967) As Ordered ONE (14:58)
[2019-10-25] MEDS ORDERED: cefTRIAXone SOD 2 GM in D5W MINI-BAG PLUS 50 ML IV ONE (15:00)
[2019-10-25] MEDS ORDERED: AZITHROMYCIN INJ 500 MG, VIAL MATE ADAPTER 1 EACH in D5W 250 ML IV ONE (15:00)
[2019-10-25] MEDS ORDERED: IPRATROPIUM 0.5MG/ALBUTEROL 2.5MG INH SOL UD 3ML (DUONEB)(J7620) INH PRN (16:00)
[2019-10-25] MEDS ORDERED: ACETAMINOPHEN TAB 650MG DOSE (2X325MG) PO PRN (16:00)
[2019-10-25] MEDS ORDERED: MOM 30ML SUSPENSION UDC PO PRN (16:00)
[2019-10-25] MEDS ORDERED: NS 1,000 ML IV SCH (16:00)
[2019-10-25] MEDS ORDERED: MAALOX 30 ML SUSP *UDC PO PRN (16:00)
[2019-10-25] MEDS ORDERED: LORA1TAB12 PO (16:06)
[2019-10-25] MEDS ORDERED: REME30TA PO (16:06)
--- NOTE | 2019-10-25 16:18 | HPEPDOC ---
General Date of Admission Oct 25, 2019 at 15:52 Date of Service: Oct 25, 2019 Primary Care Physician: Faustino Pruett MD Attending Physician: LAKESHIA JIMÉNEZ MD Chief Complaint The patient is a 54-year-old male admitted with a reason for visit of Community Acquired Pneumonia. Source: Caregiver Exam Limitations: Other (coordination problems. 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 Recurrent nonsustained V. tach, systolic congestive heart failure, pulmonary hypertension with right heart failure, BPH, dysphagia, history of tobacco use, emphysema, COPD, environmental allergies. Fatty liver was brought in by her caregiver with chief complaints of patient's swollen feet and weakness, also nauseous. As per patient's caregiver, she brought her to ED a few days ago with anxiety disorder and was discharged home but patient progressively got worse and was brought in today for further workup. Unable to obtained history from patient secondary to cognitive and physical disabilities. History was obtained from ED physician hold patient's old medical records were reviewed. Also history was obtained from patient's caregiver.. Home Medications Scheduled Mirtazapine (Remeron) 30 Mg Tablet, 30 MG PO QHS, (Reported) Olanzapine (Olanzapine) 2.5 Mg Tablet, 2.5 MG PO BID, (Reported) Omeprazole (Omeprazole) 20 Mg Capsule.dr, 20 MG PO DAILY, (Reported) Sertraline HCl (Sertraline HCl) 100 Mg Tablet, 100 MG PO DAILY, (Reported) Tamsulosin HCl (Flomax) 0.4 Mg Capsule, 0.4 MG PO DAILY, (Reported) once daily 1/2 hour following breakfast Scheduled PRN Lorazepam (Lorazepam) 1 Mg Tablet, 1 MG PO BID PRN for ANXIETY, (Reported) Allergies Coded Allergies: No Known Drug Allergies (Verified Allergy, Unknown, 05/14/19) Past Medical History Medical History Kittson's chorea. Cardiomyopathy, ejection fraction of 30%, global hypokinesis, tobacco use, emphysema, COPD, back pain, environmental allergies. Fatty liver DNR/DNI. Mild hyperlipidemia. Recurrent nonsustained V. tach, systolic congestive heart failure, pulmonary hypertension with right heart failure, BPH, and dysphagia Surgical History None available Family History Father had lung cancer and COPD, mother had Kittson's disease Social History * Smoker: former Smoker Alcohol: Denies Drugs: denies A-FIB/CHADSVASC A-FIB History Current/History of A-Fib/PAF?: No Review of Systems Constitutional: Reports: Other (unable to obtained review of systems secondary to patient's mental status) Physical Examination General Exam: Positive: Other (awake and no distress, choreitic movements noted) Eye Exam: Positive: PERRLA, Conjunctiva & lids normal ENT Exam: Positive: Atraumatic, Mucous membr. moist/pink Neck Exam: Positive: Supple Chest Exam: Positive: Other (. Diminished breath sounds bilaterally. No added sound audible secondary to body habitus) Heart Exam: Positive: Rate Normal, Normal S1, Normal S2 Telemetry: Positive: Tachycardia Abdomen Exam: Positive: Normal bowel sounds, Soft, Other (, unable to appreciate tenderness) Extremity Exam: Positive: Swelling, Other (bipedal edema noted) Skin Exam: Positive: Nl turgor and temperature Neuro Exam: Positive: Other (. Moves all extremities) Vital Signs Vital Signs Date Time Temp Pulse Resp B/P (MAP) Pulse Ox O2 Delivery O2 Flow Rate FiO2 10/25/19 14:00 125 18 117/79 (92) 99 Room Air 10/25/19 12:32 98.2 Laboratory Data Labs 24H Laboratory Tests 2 10/25/19 13:36: Blood Gas Bicarbonate Standard 17.3, Venous Blood pH 7.391, Venous Blood Partial Pressure CO2 26.8L, Venous Blood Partial Pressure O2 26.8L, Venous Blood Total Carbon Dioxide 16.7L, Venous Blood HCO3 15.9L, Venous Blood Oxygen Saturation 40.6L, Venous Blood Base Excess -7.5L, Lactic Acid Level 3.3*H 10/25/19 13:37: Immature Granulocyte % (Auto) 0.8, Neutrophils (%) (Auto) 75.9H, Lymphocytes (%) (Auto) 10.5L, Monocytes (%) (Auto) 12.7H, Eosinophils (%) (Auto) 0.0, Basophils (%) (Auto) 0.1, Neutrophils # (Auto) 15.4H, Lymphocytes # (Auto) 2.1, Monocytes # (Auto) 2.6H, Eosinophils # (Auto) 0.0, Basophils # (Auto) 0.0, Nucleated Red Blood Cells % (auto) 0.0, Prothrombin Time 21.0H, Prothromb Time International Ratio 1.84, Anion Gap 11, Glomerular Filtration Rate > 60.0, Calcium Level 8.5, Total Bilirubin 3.5H, Direct Bilirubin 2.1H, Aspartate Amino Transf (AST/SGOT) 1055H, Alanine Aminotransferase (ALT/SGPT) 1259H, Alkaline Phosphatase 194H, Total Creatine Kinase 380H, Creatine Kinase MB 5.7H, Creatine Kinase MB Relative Index 1.50, Troponin I 0.06, XF-Icf-M-Type Natriuretic Peptide 7131H, Total Protein 5.5L, Albumin 3.1L, Albumin/Globulin Ratio 1.29, Lipase 78, Thyroid Stimulating Hormone (TSH) 2.610, Thyroxine (T4) 7.6, Influenza Type A (RT-PCR) NEGATIVE, Influenza Type B (RT-PCR) NEGATIVE CBC/BMP Laboratory Tests 10/25/19 13:37 Microbiology Microbiology 10/25/19 Blood Culture, Received Pending 10/25/19 Gram Stain - Final, Complete 10/25/19 Sputum Culture - Final, Complete 10/25/19 Blood Culture, Received Pending Problems (1) CAP (community acquired pneumonia) Status: Acute Problem Text: This is a 54 years old white male with a genetically progressive movement disorder and dementia, 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 Recurrent nonsustained V. tach, systolic congestive heart failure, pulmonary hypertension with right heart failure, BPH, dysphagia, history of tobacco use, emphysema, COPD, environmental allergies, fatty liver was brought into ER with chief complaints of generalized weakness and nausea. On further workup. Patient was found to have a right lower lobe infiltrate on chest x-ray and I was called by the ED physician , patient also has CTA chest positive for PE. Official report is still pending. Patient. WBC count is 20.3, hemoglobin is stable, lactic acid 3.3. Electrolytes are normal except BUN 15 and creatinine of 1.30. Patient's LFTs also elevated with AST is of 1055, AST 1259, ALP 194, P of 7131 Admit patient to PCU with telemetry and continuous pulse ox Saline lock Patient received 1 dose of IV Rocephin and Zithromax in ED and will continue the same DuraNeb every 6 hours and every 2 hours when necessary, Blood cultures 2 Sputum cultures Oxygen support as needed. Patient's pulse ox is 99% on room air at the present time DVT prophylaxis: Patient will be on IV heparin for PE Bedside swallow eval Regular diet Activity as tolerated Pt is DNR/DNI (2) Pulmonary embolism Status: Acute Problem Text: I was called by the ED attending. The patient's CTA of chest t consistent with pulmonary embolus. Official report is still pending Will start patient on IV heparin. After giving the bolus of 1000 units IV. Monitor PT, PTT Monitor, continuous pulse ox (3) Right-sided heart failure Status: Acute Problem Text: Patient has bilateral pedal edema. Also history of right heart failure. Again, patient most likely has a right heart failure secondary to massive PE and pneumonia and history of congestive heart failure Will hold all IV fluids Conservative medical management Will hold IV diuresis. This patient is clinically stable with good pulse ox on room air O2 supplement as needed (4) Elevated liver enzymes Status: Acute Problem Text: Most likely secondary to keep padded congestion secondary to right heart failure Will order Acute hepatitis profile Continue monitoring liver enzymes repeated has been ordered for tomorrow (5) Kittson's disease Status: Chronic Problem Text: Continue home meds. Continue home meds (6) Anxiety Status: Chronic Problem Text: Continue home meds Plan / VTE VTE Prophylaxis Ordered?: Yes LAKESHIA JIMÉNEZ MD Oct 25, 2019 16:18
[2019-10-25] MEDS ORDERED: HEPARIN SOD (PORCINE) 5000 UNITS/ML VIAL IV PRN (16:30)
[2019-10-25] MEDS ORDERED: LORazepam 1 MG TAB As Ordered ONE (17:07)
[2019-10-25] MEDS: LORazepam 1 MG TAB PO PRN (17:10)
[2019-10-25 17:16] LABS: HEMATOCRIT 37.4 % (42.0-52.0); HEMOGLOBIN 12.2 g/dl (13.5-17.5); MEAN CORPUSCULAR HEMOGLOBIN 31.4 pg (27.0-33.0); MEAN CORPUSCULAR HGB CONC 32.6 g/dl (32.0-36.5); MEAN CORPUSCULAR VOLUME 96.1 fl (80.0-96.0); PLATELET COUNT, AUTOMATED 268 10^3/uL (150-450); RED BLOOD COUNT 3.89 10^6/uL (4.30-6.10); WHITE BLOOD COUNT 20.4 10^3/uL (4.0-10.0)
--- NOTE | 2019-10-25 17:23 | REP ---
CHEST, SINGLE VIEW: Single view of the chest is performed and compared to prior study of 06/13/2019. There is cardiomegaly. There is infiltrate in the right lung base. Left lung demonstrates no infiltrate. Mediastinal silhouette is unchanged. IMPRESSION: Cardiomegaly. Right basilar infiltrate. Electronically Signed by Juan Miguel Honeycutt MD 10/28/2019 04:15 P
[2019-10-25] MEDS: guaiFENesin DM LIQ 10ML UD PO PRN (17:25)
[2019-10-25] MEDS ORDERED: LORazepam 2 MG/ML VIAL (J2060) IV STA (17:59)
--- NOTE | 2019-10-25 18:36 | REP ---
CT abdomen and pelvis with IV but without oral contrast: History: Vomiting. CT contrast dose: 100 ml of intravenous Isovue 370. CT findings: There is moderate four-chamber cardiomegaly. There is mild passive congestion of the liver. Small bilateral pleural effusions are noted. Filling defect is seen in the pulmonary arterial tree in the right lower lobe consistent with pulmonary embolus as described in the chest CT. No adrenal lesion is seen. No abnormalities noted in the gallbladder or in the pancreas. A tiny accessory splenule is present. There is a wedge-shaped focal zone of decreased perfusion and enhancement in the posterior cortex lower pole left kidney consistent with renal infarction. This is age indeterminate. 1.9 cm in diameter. Small and large intestinal bowel loops are unremarkable. There is diffuse subcutaneous edema. Scattered normal-sized iliac and inguinal lymph nodes are noted bilaterally. No definite adenopathy. There is no CT evidence of appendicitis. There is some respiratory motion artifact. No free air is seen. Urinary bladder, seminal vesicles, and prostate are unremarkable. Impression: Diffuse extra abdominal subcutaneous edema. Cardiomegaly. Some passive congestion of the liver. There is a focal zone of wedge-shaped increased renal cortical function in the lower pole parenchyma of the left kidney consistent with infarct. New from prior study of September 03, 2015. Electronically Signed by Anish Tong MD 10/25/2019 08:02 P
[2019-10-25] MEDS ORDERED: HEPARIN SOD (PORCINE) 5000 UNITS/ML VIAL IV ONE (19:00)
--- NOTE | 2019-10-25 19:11 | REP ---
CT chest with IV contrast: History: Pneumonia. Comparison chest x-ray is from earlier this date. Comparison is made with images from CT study of the abdomen September 03, 2015. CT contrast dose: 100 ml of intravenous Isovue 370. CT findings: There is diffuse subcutaneous edema in the extrathoracic soft tissues. Moderate to marked cardiomegaly is observed. There are small bilateral pleural effusions. CHF pattern. There are scattered mediastinal lymph nodes the largest of which is a precarinal node measuring 13 mm in short axis dimension. No definite adenopathy. There is no evidence of aortic aneurysm or dissection. There is however a filling defect in the segmental pulmonary arteries to the right lower lobe consistent with acute pulmonary embolism. No other pulmonary arterial thrombus is seen. There is an infiltrate in the right lower lobe of the lung as seen on the plain radiographs. This is fairly large alveolar infiltrate. No other infiltrate is seen. There is minimal diffuse interstitial edema however. Impression: 1. CHF pattern with small bilateral pleural effusions right greater than left, cardiomegaly, and mild diffuse pulmonary and extrathoracic soft tissue edema. 2. The study is positive for pulmonary embolism with thrombus producing a filling defect in the right lower lobe pulmonary arteries. 3. There is an alveolar infiltrate in the right lower lobe. Electronically Signed by Anish Tong MD 10/25/2019 08:04 P
[2019-10-25] MEDS: HEPARIN DRIP 25,000 UNITS in IV 1 EA IV SCH (19:39)
[2019-10-25] MEDS: NS 500 ML IV ONE ×2 (19:45→20:24)
[2019-10-25] MEDS: IPRATROPIUM 0.5MG/ALBUTEROL 2.5MG INH SOL UD 3ML (DUONEB)(J7620) INH SCH (20:00)
--- NOTE | 2019-10-25 20:19 | ECGEPIP ---
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
[2019-10-25 20:23] LABS: CK-MB VALUE MASS 5.5 NG/ML (<3.6); MB/CK RELATIVE INDEX 1.37 (< OR =4); TROPONIN I 0.06 NG/ML (< 0.10)
[2019-10-25 20:48] VITALS: BP 98/65; O2SAT 96
[2019-10-25 21:00] VITALS: BP 94/64; O2SAT 98
[2019-10-25] MEDS ORDERED: ENOXAPARIN 40 MG/0.4 ML SYRINGE (J1650) SC SCH (21:00)
[2019-10-25] MEDS ORDERED: MIRTAZAPINE 15 MG TAB PO SCH (21:00)
[2019-10-25] MEDS: OLANZapine 2.5MG TABLET PO SCH (21:15)
[2019-10-25] MEDS: SERTRALINE 100 MG TAB PO SCH (21:15)
[2019-10-25] MEDS: DOCUSATE SODIUM 100 MG CAP PO SCH (21:16)
[2019-10-25 22:00] VITALS: O2SAT 97
[2019-10-25 22:03] VITALS: BP 98/63
[2019-10-25 23:00] VITALS: BP 96/63; O2SAT 98
[2019-10-25 23:44] LABS: ABG BASE EXCESS -7.1 (-2.0-2.0); ABG HCO3 14.8 MEQ/L (22.0-26.0); ABG O2 SATURATION 96.6 % (95.0-99.0); ABG PARTIAL PRESSURE CO2 21.6 mmHg (35.0-45.0); ABG PARTIAL PRESSURE O2 85.7 mmHg (75.0-100.0); ABG STANDARD HCO3 18.7 MEQ/L (22.0-26.0); ABG TOTAL CO2 15.5 MEQ/L (22.0-29.0); ABG pH (ARTERIAL) 7.454 UNITS (7.350-7.450)
[2019-10-26] VITALS (21 sets, daily range): BP systolic 81–111; BP diastolic 57–80; O2SAT 92–98
[2019-10-26] MEDS: guaiFENesin DM LIQ 10ML UD PO PRN ×2 (00:23→04:56)
[2019-10-26] MEDS: IPRATROPIUM 0.5MG/ALBUTEROL 2.5MG INH SOL UD 3ML (DUONEB)(J7620) INH SCH ×3 (02:16→14:13)
[2019-10-26] MEDS ORDERED: FUROSEMIDE 20 MG/2 ML VIAL (J1940) IV ONE ×3 (02:30→15:00)
[2019-10-26 06:15] LABS: HEMATOCRIT 34.5 % (42.0-52.0); HEMOGLOBIN 11.5 g/dl (13.5-17.5); MEAN CORPUSCULAR HEMOGLOBIN 32.1 pg (27.0-33.0); MEAN CORPUSCULAR HGB CONC 33.3 g/dl (32.0-36.5); MEAN CORPUSCULAR VOLUME 96.4 fl (80.0-96.0); PLATELET COUNT, AUTOMATED 246 10^3/uL (150-450); RED BLOOD COUNT 3.58 10^6/uL (4.30-6.10); WHITE BLOOD COUNT 23.4 10^3/uL (4.0-10.0)
[2019-10-26 06:59] LABS: ALBUMIN 2.8 GM/DL (3.2-5.2); ALT/SGPT 2295 U/L (12-78); BILIRUBIN,TOTAL 3.1 MG/DL (0.2-1.0); BLOOD UREA NITROGEN 52 MG/DL (7-18); CALCIUM LEVEL 7.6 MG/DL (8.5-10.1); CARBON DIOXIDE LEVEL 21 MEQ/L (21-32); CHLORIDE LEVEL 100 MEQ/L (98-107); CREATININE FOR GFR 1.29 MG/DL (0.70-1.30); GLOMERULAR FILTRATION RATE > 60.0 (>56); GLUCOSE, FASTING 132 MG/DL (70-100); MAGNESIUM LEVEL 2.2 MG/DL (1.8-2.4); POTASSIUM SERUM 4.5 MEQ/L (3.5-5.1); SODIUM LEVEL 135 MEQ/L (136-145); TOTAL PROTEIN 5.1 GM/DL (6.4-8.2)
[2019-10-26] MEDS ORDERED: TAMSULOSIN 0.4 MG CAP PO SCH (09:00)
[2019-10-26] MEDS ORDERED: methylPREDNISolone INJ 40 MG/1 ML VIAL (J2920) IV SCH (09:00)
[2019-10-26] MEDS ORDERED: OMEPRAZOLE 20 MG CAP PO SCH (09:00)
[2019-10-26] MEDS ORDERED: guaiFENesin ER 600 MG TAB PO SCH (09:00)
[2019-10-26] MEDS: DOCUSATE SODIUM 100 MG CAP PO SCH (09:12)
[2019-10-26] MEDS: OLANZapine 2.5MG TABLET PO SCH (09:12)
[2019-10-26] MEDS: SERTRALINE 100 MG TAB PO SCH (09:13)
--- NOTE | 2019-10-26 09:47 | REP ---
Portable chest x-ray: Single view. 10:42 p.m. film. History: Dyspnea. Comparison study: October 25, 2019. 01:45 p.m. film. Findings: Monitoring electrodes overlie the chest. There is an infiltrate in the right lower lobe consistent with pneumonia. Moderate cardiomegaly is observed. Pulmonary vasculature is not increased. Impression: Right lower lobe infiltrate. Moderate cardiomegaly. Electronically Signed by Anish Tong MD 10/26/2019 09:39 A
--- NOTE | 2019-10-26 10:40 | IPNPDOC ---
Subjective Date Seen The patient was seen on 10/26/19. Subjective Chief Complaint/HPI Mr. Villalobos indicates that he thinks his legs are less swollen today. He is uncomfortable from coughing. Nursing reports that his heparin drip has not been difficult to manage and that he is maintaining his saturations well on 1L via NC. He has eaten about 25% of his breakfast, but didn't have any nausea or difficulty with swallowing. General: Reports: Normal Appetite Constitutional: Denies: Chills, Fever Pulmonary: Reports: Dyspnea (with exertion), Cough Cardiovascular: Reports: Edema (bilateral LE); Denies: Chest Pain, Palpitations Gastrointestinal: Denies: Nausea, Vomiting, Abdominal Pain Objective Physical Examination General Exam: Positive: Alert, Cooperative, No Acute Distress, Other (persistent choreitic movements noted) Eye Exam: Positive: Conjunctiva & lids normal; Negative: Sclera icteric ENT Exam: Positive: Atraumatic, Mucous membr. moist/pink Neck Exam: Positive: Supple Chest Exam: Positive: Rales (there were course crackles noted in the R lower lung razo), Diminished, Other (egophany was noted on the R lateral chest during vocalization during my exam); Negative: Wheezing Heart Exam: Positive: Rate Normal, Irregular Rhythm, Normal S1, Normal S2 Telemetry: Positive: Atrial fibrillation, Tachycardia Abdomen Exam: Positive: Normal bowel sounds, Soft; Negative: Tenderness, Hepatospenomegaly Male Exam: Positive: Normal Genital Exam (with Hussein catheter in place) Extremity Exam: Positive: Edema (2-3mm of pitting edema noted on the lower tibial area bilaterally) Skin Exam: Positive: Nl turgor and temperature Neuro Exam: Positive: Other (consistent choreoathetoid movements) Psych Exam: Positive: Mood NL, Oriented x 3 Assessment /Plan Problems (1) CAP (community acquired pneumonia) Status: Acute Discussed With: Nurse, Patient Problem Specific Plan: Monitor Clinically, Repeat Labs Problem Text: His WBC went up a little today, but he is requiring less oxygen. I believe that we have the right antibiotics chosen. I will check a CRP and follow this. I will also add moderate dose IV steroids to see if we can get a little improvement in his oxygenation and possibly clearance of the infected material from the R lower lung field. (2) Acute respiratory failure with hypoxia Status: Acute Discussed With: Nurse, Patient Problem Specific Plan: Monitor Clinically, Repeat Labs Problem Text: He is on 1L via nasal canula and is maintaining in the low 90s right now. He has a persistent lactate level, so his body is still under hypoxem ic stress. Will monitor this. (3) Pulmonary embolism Status: Acute Problem Specific Plan: Monitor Clinically, Repeat Labs Problem Text: He is on a heparin drip for now. He will eventually need to be transitioned to an oral anticoagulant, but I'd like to make sure that we are really making progress with the infection before I change much. (4) Acute on chronic right-sided congestive heart failure Status: Acute Problem Specific Plan: Monitor Clinically Problem Text: His PE is making his preexisting heart failure worse. The Echo is still pending, but based on the liver enzymes, I don't think that his R heart function is very good right now. He is diuresing and his I/O are negative. (5) Elevated liver enzymes Status: Acute Problem Specific Plan: Repeat Labs Problem Text: Probably related to worsening passive congestion from the R sided heart failure. I anticipate that this will improve when the heart failure improves. (6) Avenue's disease Status: Chronic Problem Text: Continue current regimen. This certainly does complicate his medical management. (7) Anxiety Status: Chronic Problem Text: Continue current regimen. Plan/VTE VTE Prophylaxis Ordered?: Yes (heparin drip and SCDs) VS, I&O, 24H, Fishbone Vital Signs/I&O Vital Signs Date Time Temp Pulse Resp B/P (MAP) Pulse Ox O2 Delivery O2 Flow Rate FiO2 10/26/19 08:00 98.5 122 24 98/73 (81) 93 Nasal Cannula 1.0 I&O- Last 24 Hours up to 6 AM 10/26/19 06:00 Intake Total 1249 ml Output Total 550 ml Balance 699 ml Laboratory Data 24H LABS Laboratory Tests 2 10/25/19 13:36: Blood Gas Bicarbonate Standard 17.3, Venous Blood pH 7.391, Venous Blood Partial Pressure CO2 26.8L, Venous Blood Partial Pressure O2 26.8L, Venous Blood Total Carbon Dioxide 16.7L, Venous Blood HCO3 15.9L, Venous Blood Oxygen Saturation 40.6L, Venous Blood Base Excess -7.5L, Lactic Acid Level 3.3*H 10/25/19 13:37: Immature Granulocyte % (Auto) 0.8, Neutrophils (%) (Auto) 75.9H, Lymphocytes (%) (Auto) 10.5L, Monocytes (%) (Auto) 12.7H, Eosinophils (%) (Auto) 0.0, Basophils (%) (Auto) 0.1, Neutrophils # (Auto) 15.4H, Lymphocytes # (Auto) 2.1, Monocytes # (Auto) 2.6H, Eosinophils # (Auto) 0.0, Basophils # (Auto) 0.0, Nucleated Red Blood Cells % (auto) 0.0, Prothrombin Time 21.0H, Prothromb Time International Ratio 1.84, Anion Gap 11, Glomerular Filtration Rate > 60.0, Calcium Level 8.5, Total Bilirubin 3.5H, Direct Bilirubin 2.1H, Aspartate Amino Transf (AST/SGOT) 1055H, Alanine Aminotransferase (ALT/SGPT) 1259H, Alkaline Phosphatase 194H, Total Creatine Kinase 380H, Creatine Kinase MB 5.7H, Creatine Kinase MB Relative Index 1.50, Troponin I 0.06, [id number]-Type Natriuretic Peptide 7131H, Total Protein 5.5L, Albumin 3.1L, Albumin/Globulin Ratio 1.29, Lipase 78, Thyroid Stimulating Hormone (TSH) 2.610, Thyroxine (T4) 7.6, Influenza Type A (RT-PCR) NEGATIVE, Influenza Type B (RT-PCR) NEGATIVE 10/25/19 16:45: Nucleated Red Blood Cells % (auto) 0.0, Activated Partial Thromboplast Time 29.4, Lactic Acid Followup at 4 Hours 3.5*H 10/25/19 19:47: Total Creatine Kinase 401H, Creatine Kinase MB 5.5H, Creatine Kinase MB Relative Index 1.37, Troponin I 0.06 10/25/19 23:33: Blood Gas Bicarbonate Standard 18.7L, Arterial Blood pH 7.454H, Arterial Blood Partial Pressure CO2 21.6L, Arterial Blood Partial Pressure O2 85.7, Arterial Blood Total CO2 15.5L, Arterial Blood HCO3 14.8L, Arterial Blood Base Excess - 7.1L, Arterial Blood Oxygen Saturation 96.6 10/25/19 23:38: Activated Partial Thromboplast Time 57.4H 10/26/19 06:03: Activated Partial Thromboplast Time 88.7H, Nucleated Red Blood Cells % (auto) 0.0, Anion Gap 14, Glomerular Filtration Rate > 60.0, Calcium Level 7.6L, Magnesium Level 2.2, Total Bilirubin 3.1H, Aspartate Amino Transf (AST/SGOT) 1965H, Alanine Aminotransferase (ALT/SGPT) 2295H, Alkaline Phosphatase 157H, Total Protein 5.1L, Albumin 2.8L, Albumin/Globulin Ratio 1.22 CBC/BMP Laboratory Tests 10/25/19 13:37 10/25/19 16:45 10/26/19 06:03 Microbiology Microbiology 10/25/19 Blood Culture, Received Pending 10/25/19 Gram Stain - Final, Complete 10/25/19 Sputum Culture - Final, Complete 10/25/19 Blood Culture, Received Pending Duarte Garcia MD Oct 26, 2019 10:40
--- NOTE | 2019-10-26 11:31 | ECHO ---
DATE OF STUDY: 10/25/2019 REFERRING PHYSICIAN: Maria Luz Jain DO INDICATION: Dyspnea. Height 175 cm, weight 77 kg. DIMENSIONS: IVS 0.7 LV 7.2 LVPW 1.0 LA 4.4 Aorta 3.2 IVC: 3.1 FINDINGS: The study is of good technical quality. The patient is sinus rhythm with ventricular rate around 100-110 beats per minute. Left ventricle is severely dilated and globally hypokinetic. Overall estimated ejection fraction (EF) around 20%; it was 24% by computer calculation which seems to me a little too optimistic. The right ventricle appears mildly dilated and also globally hypokinetic. The left atrium is severely enlarged. The right atrium is at least mildly enlarged. Aortic valve appears grossly normal. There appears to be small echodensity attached to anterior mitral leaflet which most likely represents loose cord. I do not appreciate any maci prolapse by 2D imaging. Tricuspid valve appears normal. Pulmonic valve also appears normal. No pericardial effusion is noted. Inferior vena cava is severely dilated and has no appreciable collapse with respiration indicative of very high central venous pressure. Aortic root, aortic arch, and abdominal aorta all appear normal. Doppler interrogation of aortic valve reveals no stenosis or insufficiency. There is approximately moderate mitral insufficiency with eccentric jet likely due to valvular abnormality rather than secondary to LV dilatation. There is at least moderate tricuspid insufficiency. Calculated pulmonary artery pressure is in 40s corresponding to moderate pulmonary hypertension. Evaluation of diastolic function is inconclusive due to merger of E- and A-wave on mitral inflow, but tissue Doppler velocities of mitral annulus are very low; and consequently, I estimate advanced diastolic dysfunction. CONCLUSIONS: 1. Study is of good technical quality. The patient is in sinus rhythm. 2. Severely dilated and severely globally hypokinetic left ventricle with advanced diastolic dysfunction. 3. Moderate mitral insufficiency. 4. Moderate tricuspid insufficiency. 5. Severely elevated central venous pressure. 6. Moderate pulmonary hypertension. COMMENTS: Subacute bacterial endocarditis (SBE) prophylaxis is not recommended. The study is most consistent with dilated cardiomyopathy, but ischemic cardiomyopathy certainly needs to be considered in differential diagnosis.
[2019-10-26] MEDS: HEPARIN DRIP 25,000 UNITS in IV 1 EA IV SCH (12:08)
[2019-10-26] MEDS: LORazepam 1 MG TAB PO PRN (15:38)
[2019-10-26 15:51] LABS: BLOOD UREA NITROGEN 50 MG/DL (7-18); CALCIUM LEVEL 7.7 MG/DL (8.5-10.1); CARBON DIOXIDE LEVEL 20 MEQ/L (21-32); CHLORIDE LEVEL 102 MEQ/L (98-107); CREATININE FOR GFR 1.16 MG/DL (0.70-1.30); GLOMERULAR FILTRATION RATE > 60.0 (>56); GLUCOSE, FASTING 140 MG/DL (70-100); MAGNESIUM LEVEL 2.2 MG/DL (1.8-2.4); POTASSIUM SERUM 4.7 MEQ/L (3.5-5.1); SODIUM LEVEL 136 MEQ/L (136-145)
[2019-10-26] MEDS ORDERED: AZITHROMYCIN INJ 500 MG, VIAL MATE ADAPTER 1 EACH in D5W 250 ML IV SCH (16:00)
[2019-10-26] MEDS ORDERED: cefTRIAXone SOD 1 GM in D5W MINI-BAG PLUS 50 ML IV SCH (17:00)
--- NOTE | 2019-10-26 17:28 | DS.PDOC ---
Discharge Summary General Date of Admission Oct 25, 2019 at 15:52 Date of Discharge Date of : 10/26/19, time of 1615 Primary Care Physician: Faustino Pruett MD Attending Physician: Duarte Garcia MD Discharge Summary ADMITTING DIAGNOSES: 1. Community-acquired pneumonia. 2. Pulmonary embolism. 3. Right-sided heart failure. 4. Elevated liver enzymes. 5. [place]'s disease. 6. Anxiety. DISCHARGE DIAGNOSES: 1. Ventricular tachycardia. 2. Acute on chronic right-sided heart failure. 3. Nonischemic dilated cardiomyopathy. 4. Community acquired pneumonia. 5. Acute respiratory failure with hypoxia. 6. Pulmonary embolism. 7. Transaminitis. 8. Marga's disease. 9. Anxiety. PROCEDURES PERFORMED DURING STAY: None. ADMISSION HISTORY: Mr. Villalobos was admitted to the hospital for community- acquired pneumonia. Please see the admission history and physical for the remaining details. HOSPITAL COURSE: Mr. Villalobos was admitted for community-acquired pneumonia and acute respiratory failure. The respiratory failure was made worse by the fact that a pulmonary embolism was discovered in the vasculature of the area of the lung that was infected. Initially we struggled to maintain his oxygen saturations and this increased work of breathing as well as increased vascular resistance secondary to the pulmonary embolism worsened his right heart failure. By his second day in the hospital/ICU we seemed to her making some progress. However, unfortunately, he rather suddenly developed a ventricular tachycardia from which he did not spontaneously recover. He had previously signed clear DO NOT RESUSCITATE orders and these were honored in full. DISCHARGE CONDITION: Morbid. IMAGING: Chest x-rays, CT chest with contrast, CT of the abdomen and pelvis. Vital Signs/I&Os Vital Signs Date Time Temp Pulse Resp B/P (MAP) Pulse Ox O2 Delivery O2 Flow Rate FiO2 10/26/19 16:00 98.7 132 26 109/57 (74) 99 Nasal Cannula 1.0 I&O- Last 24 Hours up to 6 AM 10/26/19 06:00 Intake Total 1249 ml Output Total 550 ml Balance 699 ml Laboratory Data Labs 24H Laboratory Tests 2 10/25/19 19:47: Total Creatine Kinase 401H, Creatine Kinase MB 5.5H, Creatine Kinase MB Relative Index 1.37, Troponin I 0.06 10/25/19 23:33: Blood Gas Bicarbonate Standard 18.7L, Arterial Blood pH 7.454H, Arterial Blood Partial Pressure CO2 21.6L, Arterial Blood Partial Pressure O2 85.7, Arterial Blood Total CO2 15.5L, Arterial Blood HCO3 14.8L, Arterial Blood Base Excess - 7.1L, Arterial Blood Oxygen Saturation 96.6 10/25/19 23:38: Activated Partial Thromboplast Time 57.4H 10/26/19 06:03: Activated Partial Thromboplast Time 88.7H, Nucleated Red Blood Cells % (auto) 0.0, Anion Gap 14, Glomerular Filtration Rate > 60.0, Calcium Level 7.6L, Magnesium Level 2.2, Total Bilirubin 3.1H, Aspartate Amino Transf (AST/SGOT) 1965H, Alanine Aminotransferase (ALT/SGPT) 2295H, Alkaline Phosphatase 157H, C- Reactive Protein, Quantitative 3.20H, Total Protein 5.1L, Albumin 2.8L, Albumin/Globulin Ratio 1.22 10/26/19 11:55: Activated Partial Thromboplast Time 118.4H 10/26/19 15:00: Anion Gap 14, Glomerular Filtration Rate > 60.0, Calcium Level 7.7L, Magnesium Level 2.2 CBC/BMP Laboratory Tests 10/26/19 06:03 10/26/19 15:00 Microbiology Microbiology 10/25/19 Blood Culture - Preliminary, Resulted No growth after 24 hours . All specim... 10/25/19 Gram Stain - Final, Complete 10/25/19 Sputum Culture - Final, Complete 10/25/19 Blood Culture - Preliminary, Resulted No growth after 24 hours . All specim... Discharge Medications Scheduled Mirtazapine (Remeron) 30 Mg Tablet, 30 MG PO QHS, (Reported) Olanzapine (Olanzapine) 2.5 Mg Tablet, 2.5 MG PO BID, (Reported) Omeprazole (Omeprazole) 20 Mg Capsule.dr, 20 MG PO DAILY, (Reported) Sertraline HCl (Sertraline HCl) 100 Mg Tablet, 100 MG PO DAILY, (Reported) Tamsulosin HCl (Flomax) 0.4 Mg Capsule, 0.4 MG PO DAILY, (Reported) once daily 1/2 hour following breakfast Scheduled PRN Lorazepam (Lorazepam) 1 Mg Tablet, 1 MG PO BID PRN for ANXIETY, (Reported) Allergies Coded Allergies: No Known Drug Allergies (Verified Allergy, Unknown, 05/14/19) Duarte Garcia MD Oct 26, 2019 17:28
[2019-10-28 11:28] LABS: HEPATITIS A ANTIBODY IGM NEGATIVE (NEGATIVE); HEPATITIS B CORE ANTIBODY IGM NEGATIVE (NEGATIVE); HEPATITIS B SURFACE ANTIGEN NEGATIVE (NEGATIVE); HEPATITIS C VIRUS ABY INDEX 0.1 INDEX (<0.8)
== END 2019-10-26 17:50 | disposition expired | DRG 175 ==
LOC: M ED 12:03 → M ED INP 15:52 → M ICU 20:40
PROVIDERS: ADMIT Internal Medicine; ATTEND Family Medicine
DX: I26.99 Other pulmonary embolism without acute cor pulmonale (principal); J18.9 Pneumonia, unspecified organism; J96.01 Acute respiratory failure with hypoxia; G10 Huntington's disease; I42.0 Dilated cardiomyopathy; I50.22 Chronic systolic (congestive) heart failure; J44.0 Chronic obstructive pulmonary disease with (acute) lower respiratory infection; I47.2 Ventricular tachycardia; I50.813 Acute on chronic right heart failure; Z66 Do not resuscitate; F41.9 Anxiety disorder, unspecified; F02.80 Dementia in other diseases classified elsewhere, unspecified severity, without behavioral disturbance, psychotic disturbance, mood disturbance, and anxiety; E78.5 Hyperlipidemia, unspecified; K76.0 Fatty (change of) liver, not elsewhere classified; I27.20 Pulmonary hypertension, unspecified; N40.0 Benign prostatic hyperplasia without lower urinary tract symptoms; R13.10 Dysphagia, unspecified; Z79.899 Other long term (current) drug therapy; Z87.891 Personal history of nicotine dependence